=== PATIENT | female | born 1980 | race Two or more races ===

== ENCOUNTER 2020-06-04 18:43 | Outpatient (REF) | payer OTHER, SELFPAY ==
--- NOTE | 2020-06-04 18:45 | MR_ITS ---
EXAMINATION: MR BRAIN WITHOUT CONTRAST CLINICAL INFORMATION: Migraine. COMPARISON: None available. TECHNIQUE: MRI of the brain was obtained using routine sequences without contrast. FINDINGS: No focal restricted diffusion is demonstrated to suggest acute or subacute cerebral ischemia. No evidence of acute or chronic hemorrhagic products on heme-sensitive imaging. Normal parenchymal signal characteristics. The ventricles are normal in morphology and size. No abnormal mass effect. No midline shift. Normal appearance of the pituitary gland. No abnormalities of the posterior fossa with normal appearance of the brainstem and cerebellum. Normal positioning of the cerebellar tonsils. Normal arterial and venous vascular flow voids are present. Normal, homogeneous marrow signal. Mild mucosal thickening of the paranasal sinuses. No signal abnormalities within the mastoids. MR/MR head/brain wo con IMPRESSION: No acute intracranial abnormalities. No MRI abnormalities to explain the patient's symptoms.
== END 2020-06-04 18:44 | disposition home or self-care (01) ==
LOC: HO.MRI 18:43
PROVIDERS: PCP Internal Medicine; Visit Provider Internal Medicine
DX: G43.909 Migraine, unspecified, not intractable, without status migrainosus (principal)
CPT/HCPCS: 70551

== ENCOUNTER 2020-06-10 13:53 | Outpatient (REF) | payer OTHER, SELFPAY ==
[2020-06-10 14:52] LABS: Blood Urea Nitrogen 12 mg/dL (9-16); Estimated Glomerular Filt Rate > 60
[2020-06-10 15:13] LABS: TSH reflex Free T4 1.38 mIU/mL (0.32-4.0)
== END 2020-06-10 13:54 | disposition home or self-care (01) ==
LOC: HO.LAB 13:53
PROVIDERS: Visit Provider Internal Medicine
DX: G43.909 Migraine, unspecified, not intractable, without status migrainosus (principal); E03.9 Hypothyroidism, unspecified
CPT/HCPCS: 36415; 82565; 84443; 84520

== ENCOUNTER 2020-08-23 10:05 | Outpatient (REF) | payer OTHER, SELFPAY ==
[2020-08-23 13:43] LABS: Syphilis Screen Nonreactive (Nonreactive)
[2020-08-23 15:12] LABS: CT PCR NOT DETECTED (Not Detect.); NG PCR NOT DETECTED (Not Detect.)
[2020-08-24 11:51] LABS: BV Int Neg Control Negative (Negative); BV Int Pos Control Positive (Positive)
[2020-08-26 03:46] LABS: HBc Num1 0.08 S/CO (0.00-0.79); Hepatitis B Core Antibody Nonreactive (Nonreactive); ~HepC Num1 0.12 S/CO (0.00-0.79); ~Hepatitis C Antibody Nonreactive (Nonreactive)
[2020-08-26 04:00] LABS: HIV AB/AG Nonreactive (Nonreactive); HIV Num 1 0.07 S/CO (0.00-0.99)
== END 2020-08-23 10:06 | disposition home or self-care (01) ==
LOC: HO.LAB 10:05
PROVIDERS: PCP Internal Medicine; Visit Provider Advanced Practice Midwife
DX: Z01.419 Encounter for gynecological examination (general) (routine) without abnormal findings (principal); N93.9 Abnormal uterine and vaginal bleeding, unspecified; R10.2 Pelvic and perineal pain; Z20.2 Contact with and (suspected) exposure to infections with a predominantly sexual mode of transmission
CPT/HCPCS: 36415; 86704; 86780; 86803; 87389; 87480; 87491; 87510; 87591; 87660

== ENCOUNTER 2020-08-29 15:19 | Outpatient (REF) | payer OTHER, SELFPAY ==
--- NOTE | ~2020-08-29 | US_ITS ---
EXAMINATION: US PELVIC COMPLETE CLINICAL INFORMATION: Pelvic and perineal pain. COMPARISON: None TECHNIQUE: Transabdominal and transvaginal pelvic ultrasound performed. FINDINGS: Uterus: 9.1 x 5.1 x 6.1 cm. Endometrial thickness 0.3 cm. There is a 3.9 x 3.7 x 3.2 cm solid mass in the fundus, likely fibroid. IUD noted in the expected position in the endometrial canal. Right ovary: 2.7 x 1.8 x 2.2 cm with a volume of 5.6 mL. Left ovary: 3.4 x 1.8 x 2 cm for a volume of 6.4 mL. Cul-de-sac fluid: None. US/US transvaginal IMPRESSION: Intrauterine mass consistent with fibroid.
--- NOTE | ~2020-08-29 | MM_ITS ---
EXAMINATION: MM SCREENING DIGITAL BREAST TOMOSYNTHESIS, BILATERAL CLINICAL INFORMATION: Screening. Asymptomatic. No prior breast imaging. Age 40. No known family history breast cancer. The lifetime risk of breast cancer based on the Tyrer-Cuzick Model is 12%. COMPARISON: None (current study represents initial baseline exam). TECHNIQUE: Digital breast tomosynthesis is performed in both the craniocaudal and mediolateral oblique views along with computer-aided detection (CAD). Synthesized 2D images are generated from the tomosynthesis. Additional exaggerated left CC view is provided. FINDINGS: There are scattered areas of fibroglandular density (ACR BI-RADS breast composition Category b). There are no significant masses, abnormal calcifications, or other abnormalities. The axilla and skin contours are unremarkable. MM/MM tomosynthesis screening BI IMPRESSION: No mammographic evidence of malignancy. ASSESSMENT: BI-RADS 1: Negative RECOMMENDATION: Routine annual mammography screening. This patient's information was entered into a reminder system with a target due date for their next mammogram.
--- NOTE | ~2020-08-29 | US_ITS ---
EXAMINATION: US PELVIC COMPLETE CLINICAL INFORMATION: Pelvic and perineal pain. COMPARISON: None TECHNIQUE: Transabdominal and transvaginal pelvic ultrasound performed. FINDINGS: Uterus: 9.1 x 5.1 x 6.1 cm. Endometrial thickness 0.3 cm. There is a 3.9 x 3.7 x 3.2 cm solid mass in the fundus, likely fibroid. IUD noted in the expected position in the endometrial canal. Right ovary: 2.7 x 1.8 x 2.2 cm with a volume of 5.6 mL. Left ovary: 3.4 x 1.8 x 2 cm for a volume of 6.4 mL. Cul-de-sac fluid: None. US/US pelvic complete IMPRESSION: Intrauterine mass consistent with fibroid.
== END 2020-08-29 15:20 | disposition home or self-care (01) ==
LOC: HO.MAMMO 15:19
PROVIDERS: Visit Provider Advanced Practice Midwife
DX: Z12.31 Encounter for screening mammogram for malignant neoplasm of breast (principal); R10.2 Pelvic and perineal pain
CPT/HCPCS: 76830; 76856; 77063; 77067

== ENCOUNTER → 2020-09-16 11:20 | Outpatient (BNVA) | payer OTHER, SELFPAY | PROVIDERS: PCP Internal Medicine; Visit Provider Advanced Practice Midwife ==

== ENCOUNTER 2020-11-20 12:57 | Outpatient (REF) | payer OTHER, SELFPAY ==
[2020-11-20 14:19] LABS: Hematocrit 40.3 % (37-47); Hemoglobin 12.8 g/dl (12.0-16.0); Mean Corpuscular HGB Conc 31.8 g/dl (31.0-35.0); Mean Corpuscular Hemoglobin 27.3 pg (27.0-33.0); Mean Corpuscular Volume 85.9 fL (80-98); Mean Platelet Volume 10.3 fL (9.4-12.3); Platelet Count 305 X10*3/uL (160-400); Red Blood Count 4.69 X10*6/uL (4.20-5.50); Red Cell Distribution Width 13.2 % (11.0-16.0); White Blood Count 9.4 X10*3/uL (4.8-10.8)
[2020-11-23 09:06] LABS: HPV mRNA E6/E7 rflx Not Detected (Not Detected)
== END 2020-11-20 12:58 | disposition home or self-care (01) ==
LOC: HO.LAB 12:57
PROVIDERS: PCP Internal Medicine; Visit Provider Advanced Practice Midwife
DX: Z12.4 Encounter for screening for malignant neoplasm of cervix (principal); Z11.51 Encounter for screening for human papillomavirus (HPV); N93.9 Abnormal uterine and vaginal bleeding, unspecified; N92.1 Excessive and frequent menstruation with irregular cycle
CPT/HCPCS: 36415; 81025; 84443; 85027; 87624; 88142

== ENCOUNTER 2020-12-09 08:38 | Outpatient (REF) | payer OTHER, SELFPAY | END 2020-12-09 08:39 | disposition home or self-care (01) | LOC: HO.LAB 08:38 | PROVIDERS: PCP Internal Medicine; Visit Provider Advanced Practice Midwife | DX: N93.9 Abnormal uterine and vaginal bleeding, unspecified (principal); M54.81 Occipital neuralgia; M54.9 Dorsalgia, unspecified; M54.2 Cervicalgia; G43.909 Migraine, unspecified, not intractable, without status migrainosus; M46.1 Sacroiliitis, not elsewhere classified; M79.18 Myalgia, other site; Z32.02 Encounter for pregnancy test, result negative | CPT/HCPCS: 20553; 58100; 64405; 81025; 88305; J1040 ==

== ENCOUNTER → 2020-12-18 15:06 | Outpatient (REF) | payer OTHER, SELFPAY | LOC: HO.SL 15:06 | PROVIDERS: PCP Internal Medicine; Visit Provider Internal Medicine | DX: R40.0 Somnolence (principal); G47.33 Obstructive sleep apnea (adult) (pediatric) | CPT/HCPCS: 95806 ==

== ENCOUNTER → 2020-12-23 11:57 | Outpatient (BNVA) | payer OTHER, SELFPAY | PROVIDERS: PCP Internal Medicine; Visit Provider Advanced Practice Midwife ==

== ENCOUNTER 2020-12-25 06:28 | Outpatient (REF) | payer OTHER, SELFPAY ==
--- NOTE | ~2020-12-25 | FL_ITS ---
EXAMINATION: XR FLUOROSCOPY WITH IMAGES CLINICAL INFORMATION: Pain. COMPARISON: None. TECHNIQUE: Fluoroscopy performed by Dr. Khan. Fluoroscopy time: 0.8 minutes DAP: 8 Gycm2 Images: 2 FINDINGS: Images demonstrate needle placement and contrast injection over the bilateral lower sacrum. FL/FL guidance in treatment room IMPRESSION: Fluoroscopy guidance for bilateral sacral injection.
--- NOTE | ~2020-12-25 | FL_ITS ---
EXAMINATION: XR FLUOROSCOPY WITH IMAGES CLINICAL INFORMATION: Spondylosis. COMPARISON: RV guidance 12/25/2020 TECHNIQUE: Fluoroscopy performed by Dr. Bill Hewitt. Fluoroscopy time: 0.5 minutes DAP: 1.08 Gycm2 Images: 4 FINDINGS: There are lateral views of the cervical spine with needle the cc tube, C3 and C4 lamina and contrast opacifying the soft tissues. The vertebral heights, alignment and disc heights are preserved. FL/FL guidance in treatment room IMPRESSION: Fluoroscopy was provided to the referring physician for pain management.
== END 2020-12-25 06:29 | disposition home or self-care (01) ==
LOC: HO.RADIR 06:28
PROVIDERS: Visit Provider Internal Medicine
DX: M46.1 Sacroiliitis, not elsewhere classified (principal); G43.909 Migraine, unspecified, not intractable, without status migrainosus
CPT/HCPCS: 27096; J1040; Q9967

== ENCOUNTER 2021-01-24 09:44 | Outpatient (REF) | payer OTHER, SELFPAY ==
--- NOTE | ~2021-01-24 | XR_ITS ---
EXAMINATION: XR CERVICAL SPINE CLINICAL INFORMATION: Occipital neuralgia. COMPARISON: None TECHNIQUE: 4 views of the cervical spine were obtained. FINDINGS: There is straightening of the cervical spine. No prevertebral soft tissue swelling, fractures or subluxations are seen. There is disc space narrowing at C5-C6 with some minimal osteophyte formation. Some calcification is seen in the anterior longitudinal ligament at C6-C7. There is mild disc space narrowing at C7-T1 XR/XR cervical spine 2V IMPRESSION: Mild degenerative changes present as described above most marked at C5-C6.
== END 2021-01-24 09:45 | disposition home or self-care (01) ==
LOC: HO.XRAY 09:44
PROVIDERS: PCP Internal Medicine; Visit Provider Internal Medicine
DX: M54.2 Cervicalgia (principal); R40.0 Somnolence; M54.81 Occipital neuralgia; M46.1 Sacroiliitis, not elsewhere classified
CPT/HCPCS: 72040

== ENCOUNTER → 2021-02-03 15:42 | Outpatient (BNVA) | payer OTHER, SELFPAY | PROVIDERS: Visit Provider Internal Medicine ==

== ENCOUNTER 2021-02-12 06:51 | Outpatient (REF) | payer OTHER, SELFPAY | END 2021-02-12 06:52 | disposition home or self-care (01) | LOC: HO.RADIR 06:51 | PROVIDERS: Visit Provider Internal Medicine | DX: M47.812 Spondylosis without myelopathy or radiculopathy, cervical region (principal); M54.81 Occipital neuralgia | CPT/HCPCS: 64490; 64491 ==

== ENCOUNTER → 2021-02-21 10:23 | Outpatient (BNVA) | payer OTHER, SELFPAY | PROVIDERS: PCP Internal Medicine; Visit Provider Internal Medicine ==

== ENCOUNTER 2021-03-12 06:07 | Outpatient (REF) | payer OTHER, SELFPAY ==
--- NOTE | ~2021-03-12 | FL_ITS ---
EXAMINATION: XR FLUOROSCOPY WITH IMAGES CLINICAL INFORMATION: M54.81 - Occipital neuralgia COMPARISON: Radiographs cervical spine 01/24/2021 TECHNIQUE: Fluoroscopy performed by Dr. Khan. Fluoroscopy time: 0.5 minutes DAP: 0.671 Gycm2 Images: 7 FINDINGS: There are spinal needles at the right lateral masses C2, C3, C4, and C5. Contrast is seen in the nerve sheaths. There is no vascular communication. FL/FL guidance in treatment room IMPRESSION: Fluoroscopy for pain management procedures.
== END 2021-03-12 06:08 | disposition home or self-care (01) ==
LOC: HO.RADIR 06:07
PROVIDERS: Visit Provider Internal Medicine
DX: M54.81 Occipital neuralgia (principal); M46.1 Sacroiliitis, not elsewhere classified; Z79.899 Other long term (current) drug therapy
CPT/HCPCS: 64490; 64491; 64492; J1040; J1100; Q9967

== ENCOUNTER → 2021-03-14 08:00 | Outpatient (BNVA) | payer OTHER, SELFPAY | PROVIDERS: PCP Internal Medicine; Visit Provider Internal Medicine ==

== ENCOUNTER 2021-04-16 06:03 | Outpatient (REF) | payer OTHER, SELFPAY ==
--- NOTE | ~2021-04-16 | FL_ITS ---
EXAMINATION: XR FLUOROSCOPY WITH IMAGES CLINICAL INFORMATION: M54.81 - Occipital neuralgia COMPARISON: None. TECHNIQUE: Fluoroscopy performed by Dr. Francisco Khan. Fluoroscopy time: 0.8 minutes DAP: 2.37 Gycm2 Images: 4 FINDINGS: There are spinal needles overlying the right lateral masses at C3, C4, and C5. FL/FL guidance in treatment room IMPRESSION: Fluoroscopy for pain management procedure.
== END 2021-04-16 06:04 | disposition home or self-care (01) ==
LOC: HO.RADIR 06:03
PROVIDERS: Visit Provider Internal Medicine
DX: M54.81 Occipital neuralgia (principal)
CPT/HCPCS: 64490; 64491; 64633; 64634

== ENCOUNTER → 2021-05-12 09:49 | Outpatient (BNVA) | payer OTHER, SELFPAY | PROVIDERS: PCP Internal Medicine; Visit Provider Internal Medicine ==

== ENCOUNTER 2021-05-28 05:57 | Outpatient (REF) | payer OTHER, SELFPAY ==
--- NOTE | ~2021-05-28 | FL_ITS ---
EXAMINATION: XR FLUOROSCOPY WITH IMAGES CLINICAL INFORMATION: M46.1 - Sacroiliitis, not elsewhere classified COMPARISON: None. TECHNIQUE: Fluoroscopy performed by Dr. Francisco Khan. Fluoroscopy time: 0.6 minutes DAP: 1.75 Gycm2 Images: 4 FINDINGS: Spinal needles overlies mid left and mid right SI joints. No acute bony abnormality. FL/FL guidance in treatment room IMPRESSION: Fluoroscopy for pain management procedure.
== END 2021-05-28 05:58 | disposition home or self-care (01) ==
LOC: HO.RADIR 05:57
PROVIDERS: Visit Provider Internal Medicine
DX: M46.1 Sacroiliitis, not elsewhere classified (principal)
CPT/HCPCS: J1040

== ENCOUNTER → 2021-06-27 08:47 | Outpatient (BNVA) | payer OTHER, SELFPAY | PROVIDERS: PCP Internal Medicine; Visit Provider Internal Medicine ==

== ENCOUNTER 2021-07-15 08:18 | Outpatient (REF) | payer OTHER, SELFPAY ==
[2021-07-15 10:10] LABS: Alanine Aminotransferase 18 U/L (0-31); Albumin Level 4.2 g/dL (3.5-5.0); Alkaline Phosphatase 86 U/L (39-117); Anion Gap 14 (12-20); Aspartate Amino Transferase 16 U/L (5-31); Bilirubin Total 0.3 mg/dL (0.0-1.0); Blood Urea Nitrogen 17 mg/dL (9-16); Calcium 9.4 mg/dL (8.4-10.2); Carbon Dioxide 23 mmol/L (22-29); Chloride 108 mmol/L (96-108); Cholesterol 226 mg/dL; Estimated Glomerular Filt Rate > 60; Glucose Fasting 97 mg/dL (60-99); HDL Cholesterol 40 mg/dL; LDL Cholesterol Calculated 167 mg/dl; Potassium 4.6 mmol/L (3.3-5.1); Sodium 140 mmol/L (135-145); Total Protein 7.6 g/dL (6.5-8.0); Triglycerides 97 mg/dL
[2021-07-15 10:32] LABS: Thyroid Stimulating Hormone 2.77 uIU/mL (0.32-4.0)
== END 2021-07-15 08:19 | disposition home or self-care (01) ==
LOC: HO.LAB 08:18
PROVIDERS: PCP Internal Medicine; Visit Provider Internal Medicine
DX: Z00.00 Encounter for general adult medical examination without abnormal findings (principal); E03.9 Hypothyroidism, unspecified
CPT/HCPCS: 36415; 80053; 80061; 84443

== ENCOUNTER 2021-08-27 06:11 | Outpatient (REF) | payer OTHER, SELFPAY ==
--- NOTE | ~2021-08-27 | FL_ITS ---
EXAMINATION: XR FLUOROSCOPY WITH IMAGES CLINICAL INFORMATION: M46.1 - Sacroiliitis, not elsewhere classified COMPARISON: Fluoroscopic spot views 05/28/2021 TECHNIQUE: Fluoroscopy performed by Dr. Francisco Khan. Fluoroscopy time: 0.3 minutes DAP: 1.13 Gycm2 Images: 4 FINDINGS: Spinal needles overlie the bilateral mid SI joints. FL/FL guidance in treatment room IMPRESSION: Fluoroscopy for pain management procedure.
== END 2021-08-27 06:12 | disposition home or self-care (01) ==
LOC: HO.RADIR 06:11
PROVIDERS: Visit Provider Internal Medicine
DX: M46.1 Sacroiliitis, not elsewhere classified (principal); Z01.419 Encounter for gynecological examination (general) (routine) without abnormal findings
CPT/HCPCS: 27096; J1040; Q9967

== ENCOUNTER 2021-08-27 15:53 | Outpatient (REF) | payer OTHER, SELFPAY ==
[2021-08-28 02:12] LABS: CT PCR NOT DETECTED (Not Detect.); NG PCR NOT DETECTED (Not Detect.)
== END 2021-08-27 15:54 | disposition home or self-care (01) ==
LOC: HO.LAB 15:53
PROVIDERS: Visit Provider Advanced Practice Midwife
DX: Z11.3 Encounter for screening for infections with a predominantly sexual mode of transmission (principal); Z20.2 Contact with and (suspected) exposure to infections with a predominantly sexual mode of transmission
CPT/HCPCS: 87491; 87591

== ENCOUNTER 2021-09-02 16:10 | Outpatient (REF) | payer OTHER, SELFPAY ==
--- NOTE | ~2021-09-02 | MM_ITS ---
EXAMINATION: MM SCREENING DIGITAL BREAST TOMOSYNTHESIS, BILATERAL CLINICAL INFORMATION: Screening. Asymptomatic. The lifetime risk of breast cancer based on the Tyrer-Cuzick Model is 14%. COMPARISON: Mammography: 08/29/2020 (baseline). TECHNIQUE: Digital breast tomosynthesis is performed in both the craniocaudal and mediolateral oblique views along with computer-aided detection (CAD). Synthesized 2D images are generated from the tomosynthesis. FINDINGS: There are scattered areas of fibroglandular density (ACR BI-RADS breast composition Category b). Parenchymal pattern is similar to baseline exam 2020. There is no interval mass or architectural abnormality or abnormal calcifications. The axilla and skin contours are unremarkable. No significant changes. MM/MM tomosynthesis screening BI IMPRESSION: No mammographic evidence of malignancy. ASSESSMENT: BI-RADS 1: Negative RECOMMENDATION: Routine annual mammography screening. This patient's information was entered into a reminder system with a target due date for their next mammogram.
== END 2021-09-02 16:11 | disposition home or self-care (01) ==
LOC: HO.MAMMO 16:10
PROVIDERS: Visit Provider Internal Medicine
DX: Z12.31 Encounter for screening mammogram for malignant neoplasm of breast (principal)
CPT/HCPCS: 77063; 77067

== ENCOUNTER → 2021-09-26 08:03 | Outpatient (BNVA) | payer OTHER, SELFPAY | PROVIDERS: PCP Internal Medicine; Visit Provider Internal Medicine | DX: M46.1 Sacroiliitis, not elsewhere classified (principal) ==

== ENCOUNTER → 2021-11-17 09:51 | Outpatient (BNVA) | payer OTHER, SELFPAY | PROVIDERS: PCP Internal Medicine; Visit Provider Advanced Practice Midwife | DX: Z30.433 Encounter for removal and reinsertion of intrauterine contraceptive device (principal); Z32.02 Encounter for pregnancy test, result negative | CPT/HCPCS: 58300; 58301; 81025 ==

== ENCOUNTER 2022-01-31 15:55 | Emergency (ER) | payer OTHER, SELFPAY ==
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
[2022-01-31 16:43] VITALS: BP 137/79; PULSE 69; RESP 18; TEMP 36.9; O2SAT 99; BMI 34.0
[2022-01-31 23:01] VITALS: BP 144/85; PULSE 54; RESP 12; O2SAT 99
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
== END 2022-01-31 23:28 | disposition home or self-care (01) ==
PROVIDERS: Emergency Provider Emergency Medicine; PCP Internal Medicine
DX: Z04.1 Encounter for examination and observation following transport accident (principal); M25.552 Pain in left hip; M54.50 Low back pain, unspecified
CPT/HCPCS: 72100; 73502; 99283; 99284

== ENCOUNTER 2022-04-06 16:44 | Outpatient (REF) | payer OTHER, SELFPAY ==
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
[2022-04-06 18:26] LABS: Thyroid Stimulating Hormone 2.38 uIU/mL (0.32-4.0)
== END 2022-04-06 16:45 | disposition home or self-care (01) ==
LOC: HO.LAB 16:44
PROVIDERS: Visit Provider Internal Medicine
DX: E03.9 Hypothyroidism, unspecified (principal); M25.561 Pain in right knee; M25.552 Pain in left hip; M54.32 Sciatica, left side
CPT/HCPCS: 36415; 73562; 84443

== ENCOUNTER → 2022-05-28 11:41 | Outpatient (BNVA) | payer OTHER, SELFPAY | PROVIDERS: PCP Internal Medicine; Visit Provider Advanced Practice Midwife | DX: Z13.89 Encounter for screening for other disorder (principal) ==

== ENCOUNTER 2022-09-17 09:56 | Outpatient (REF) | payer OTHER, SELFPAY ==
--- NOTE | ~2022-09-17 | MM_ITS ---
EXAMINATION: MM SCREENING DIGITAL BREAST TOMOSYNTHESIS, BILATERAL CLINICAL INFORMATION: Screening. Asymptomatic. The lifetime risk of breast cancer based on the Tyrer-Cuzick Model is 10.6%. COMPARISON: Mammography: September 02, 2021 and August 29, 2020 TECHNIQUE: Digital breast tomosynthesis is performed in both the craniocaudal and mediolateral oblique views along with computer-aided detection (CAD). Synthesized 2D images are generated from the tomosynthesis. FINDINGS: The breasts are heterogeneously dense, which may obscure small masses (ACR BI-RADS breast composition Category c). There are no significant masses, abnormal calcifications, or other abnormalities. MM/MM tomosynthesis screening BI IMPRESSION: No significant changes ASSESSMENT: BI-RADS 1: Negative RECOMMENDATION: Routine annual mammography screening. This patient's information was entered into a reminder system with a target due date for their next mammogram.
== END 2022-09-17 09:57 | disposition home or self-care (01) ==
LOC: HO.MAMMO 09:56
PROVIDERS: PCP Internal Medicine; Visit Provider Internal Medicine
DX: Z12.31 Encounter for screening mammogram for malignant neoplasm of breast (principal)
CPT/HCPCS: 77063; 77067

== ENCOUNTER 2023-03-30 08:11 | Outpatient (AMB) | payer OTHER, SELFPAY ==
--- NOTE | 2023-03-30 08:27 | A.OFFPC_ITS ---
Vital Signs 03/30/23 08:28 03/30/23 09:21 Height 5 ft 1 in Weight 196 lb BMI 37.0 BP 160/108 H 160/90 H Blood Pressure Location Lt brachial Lt brachial Position Sitting Sitting Pulse 62 Pulse Source Pulse Oximeter Pulse Oximetry (%) 99 Oxygen Delivery Method Room Air Intake Visit Reasons: Swelling, numbness, discoloration on both hands Intake Note: Patient here c/o swelling, numbness, discoloration on hands Sports Psychologist Required: No Accompanied by: Self / Same As Patient Allergies No Known Allergies [No Known Allergies*] Allergy (Verified 03/30/23 08:46) Medication List - Last Reconciled 03/30/23 by Bethany Day MD blood pressure monitor As directed CPAP (CPAP Machine/Device) autoPAP mode 6-16 cmH2O ibuprofen 800 mg PO Q8H PRN 30 days levonorgestrel (Mirena) intrauterine levothyroxine 75 mcg PO QAM metoclopramide HCl mg PO sertraline 50 mg PO QAM sumatriptan succinate 50 mg PO Q2-4H verapamil ER 120 mg PO DAILY Tobacco use date assessed: 10/14/22 Dental Screening Dental Screen Date: 03/30/23 Did you have a dental visit in the last 12 months?: Yes Did you have a dental problem in the last 6 months where you did not have access to dental care?: No Was dental information given to patient?: Patient has dentist HPI HPI Comments History of Present Illness Details This is a 43-year-old female with hypothyroidism, anxiety, hypertension and obstructive sleep apnea on CPAP that complains of bilateral hand numbness and left hand pain that started few weeks ago with no previous trauma. Has positive Tinel and Phalen sign. TSH will be repeated today. Anxiety stable with SSRIs. Compliant with CPAP machine and feels markedly improved and rested. Blood pressure elevated but has not take her verapamil yet. Blood pressure will be recheck in 3 weeks by nurse navigator. [facility] Medical History (Updated 03/30/23 @ 08:52 by Bethany Day MD) Physical exam Cervical spondylosis without myelopathy CHELSEY (obstructive sleep apnea) Myofascial pain syndrome, cervical Bilateral occipital neuralgia Bilateral sacroiliitis Daytime sleepiness Neck pain Lumbar pain Fibromyalgia Anxiety Migraines Hypothyroidism Surgical History No pertinent past surgical history Family History Father Essential hypertension Kidney failure Mother Essential hypertension Family/Other FH: mental illness Paternal Aunt Ovarian cancer Stomach cancer Throat cancer Breast cancer Social History Housing: House Alcohol intake: current Alcohol intake frequency: holidays/special occasions only Patient Tobacco Use Status: Never used Tobacco e-Cigarette/Vaping Use: Never Used Second Hand Smoke Exposure: No service: No Current occupational status: employed Current occupational exposures/hazards: No Gender identity: Female Cognitive needs: No Hearing needs: No Vision needs: No Female Reproductive History Menstrual Age of Menarche: 10 Questionnaire Thrive Questionnaire Date Thrive assessed: 10/14/22 ZOË-7 AMB Questionnaire ZOË-7 Date ZOË - 7 assessed: 10/14/22 Source: Developed by Drs. Joaquín Zuleta, Lilliam Panye, Gabriel Mancuso and colleagues, with an educational monet from [employer]. Review of Systems Const All systems reviewed & are unremarkable except as noted in HPI and below Eyes Reports no additional complaints, Denies change in vision and Denies other visual disturbances Card Denies chest pain at rest, Denies chest pain with activity, Denies edema, Denies irregular heart rhythm, Denies claudication, Denies dyspnea, Denies dyspnea on exertion, Denies orthopnea, Denies paroxysmal nocturnal dyspnea and Denies slow heart rate Resp Denies cough, Denies dyspnea and Denies dyspnea on exertion GI Denies abdominal pain, Denies change in bowel habits, Denies excessive flatus, Denies nausea and Denies vomiting Denies urinary incontinence, Denies urinary hesitancy and Denies urinary urgency Musc Denies abnormal gait, Denies atrophy, Denies deformity, Reports arthralgias, Denies limited range of motion and Reports numbness Skin/Breast Denies bleeding lesions, Denies changing lesions and Denies rash Neuro Denies abnormal gait, Denies lack of coordination and Reports numbness Physical exam (Primary Care) Vital Signs: Last Vital Signs Pulse 62 03/30/23 08:28 BP 160/108 H 03/30/23 08:28 Pulse Ox 99 03/30/23 08:28 Oxygen Delivery Method Room Air 03/30/23 08:28 BMI result Body Mass Index 37.0 Tobacco/Smoking Status: Tobacco use Status Tobacco use date assessed 10/14/22 03/30/23 08:31 Patient Tobacco Use Status Never used Tobacco 03/30/23 08:31 e-Cigarette/Vaping Use Never Used 03/30/23 08:31 Thrive Assessment: Date of Thrive Assessment Date Thrive assessed 10/14/22 03/30/23 08:31 Eyes General: appearance normal, both eyes and all related structures Eyelids: Yes eyelids normal Conjunctivae: conjunctivae normal Neck Neck: Yes normal visual inspection and Yes supple Resp Effort & Inspection: normal respiratory effort Auscultation: clear to auscultation bilaterally Cardio Jugular venous distension: no JVD Rate: regular rate Rhythm: regular rhythm Heart sounds: S1 normal heart sound present and S2 normal heart sound present Extrem Other: Positive Phalen and Tinel sign bilateral General: Yes full ROM Office Procedures Flu Questionnaire Does the patient have a severe egg allergy?: No Immunizations flu vacc [id number] 6mos up(PF) 60 mcg(15 mcgx4)/0.5 mL IM syringe Performing Provider: Bethany Day MD [facility] Documented (not given) by: MAXIMILIANO Hernandez on 03/30/23 08:32 Reason Not Given: Patient Refused Assessment and Plan Assessment & Plan (1) Paresthesia of both hands: Code(s): R20.2 - Paresthesia of skin Plan: Nerve conduction study ordered (2) Essential hypertension: Code(s): I10 - Essential (primary) hypertension Plan: Continue verapamil. Blood pressure goal is equal or less than 130/80. (3) CHELSEY on CPAP: Code(s): G47.33 - Obstructive sleep apnea (adult) (pediatric); Z99.89 - Dependence on other enabling machines and devices Plan: Continue CPAP machine. (4) Hypothyroidism: Code(s): E03.9 - Hypothyroidism, unspecified Qualifiers: Hypothyroidism type: unspecified Qualified Code(s): E03.9 - Hypothyroidism, unspecified Plan: Continue levothyroxine. Repeat TSH today. (5) Anxiety: Code(s): F41.9 - Anxiety disorder, unspecified Plan: Continue SSRIs Orders: Orders Influenza [id number] Immunization Today Z23 - Encounter for immunization NE nerve conduction velocity Today R20.2 - Paresthesia of skin Thyroid Stimulating Hormone Today E03.9 - Hypothyroidism, unspecified XR hand LT 2V Today M79.642 - Pain in left hand Coding Level of Care Code Est Pt Level 4 (52656) Diagnoses Paresthesia of both hands R20.2 Essential hypertension I10 CHELSEY on CPAP G47.33; Z99.89 Hypothyroidism, unspecified type E03.9 Hypothyroidism type: unspecified Anxiety F41.9 Time Spent (min) 23
[2023-03-30 08:28] VITALS: BP 160/108; PULSE 62; O2SAT 99; BMI 37.0
[2023-03-30 09:21] VITALS: BP 160/90
== END 2023-03-30 08:52 | disposition home or self-care (01) ==
PROVIDERS: PCP Internal Medicine; Visit Provider Internal Medicine
DX: R20.2 Paresthesia of skin (principal); I10 Essential (primary) hypertension; G47.33 Obstructive sleep apnea (adult) (pediatric); Z99.89 Dependence on other enabling machines and devices; E03.9 Hypothyroidism, unspecified; F41.9 Anxiety disorder, unspecified
CPT/HCPCS: 99214

== ENCOUNTER 2023-03-30 09:05 | Outpatient (REF) | payer OTHER, SELFPAY ==
--- NOTE | ~2023-03-30 | XR_ITS ---
EXAMINATION: XR HAND, LEFT CLINICAL INFORMATION: Pain in left hand COMPARISON: None available. TECHNIQUE: PA, lateral, and oblique views of the left hand. FINDINGS: There is no evidence of fractures, subluxations, changes of osteoarthritis. Soft tissues unremarkable. XR/XR hand LT 2V IMPRESSION: Normal left hand.
[2023-03-30 10:38] LABS: Alanine Aminotransferase 15 U/L (0-31); Albumin Level 3.9 g/dL (3.5-5.0); Alkaline Phosphatase 78 U/L (39-117); Anion Gap 10 (12-20); Aspartate Amino Transferase 23 U/L (5-31); Bilirubin Total 0.2 mg/dL (0.0-1.0); Blood Urea Nitrogen 13 mg/dL (9-16); Calcium 9.2 mg/dL (8.4-10.2); Carbon Dioxide 26 mmol/L (22-29); Chloride 109 mmol/L (96-108); Cholesterol 170 mg/dL (<200); Estimated Glomerular Filt Rate > 60; Glucose Fasting 97 mg/dL (60-99); HDL Cholesterol 33 mg/dL (>40); LDL Cholesterol Calculated 113 mg/dL (<100); Potassium 3.9 mmol/L (3.3-5.1); Sodium 141 mmol/L (135-145); Total Protein 7.3 g/dL (6.5-8.0); Triglycerides 122 mg/dL (<150)
[2023-03-30 10:52] LABS: Thyroid Stimulating Hormone 2.25 uIU/mL (0.32-4.0)
== END 2023-03-30 09:06 | disposition home or self-care (01) ==
LOC: HO.LAB 09:05
PROVIDERS: PCP Internal Medicine; Visit Provider Internal Medicine
DX: M79.642 Pain in left hand (principal); E03.9 Hypothyroidism, unspecified; E78.5 Hyperlipidemia, unspecified; I10 Essential (primary) hypertension
CPT/HCPCS: 36415; 73120; 80053; 80061; 84443

== ENCOUNTER 2023-04-07 09:01 | Outpatient (REF) | payer OTHER, SELFPAY ==
--- NOTE | 2023-04-07 09:11 | EMG_ITS ---
Please see scanned EMG / Nerve Conduction Report. MTDD
== END 2023-04-07 09:02 | disposition home or self-care (01) ==
LOC: HO.NEURO 09:01
PROVIDERS: PCP Internal Medicine; Visit Provider Internal Medicine
DX: R20.2 Paresthesia of skin (principal)
CPT/HCPCS: 95885; 95913

== ENCOUNTER 2023-06-21 09:56 | Outpatient (AMB) | payer OTHER, SELFPAY ==
--- NOTE | 2023-06-21 10:00 | A.OFFVIS_ITS ---
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 States her right hand is worse than her left hand. Patient reports that the MF, RF, and the PF get numb/tingling. States CTS increases especially at night night time. Patient has tried Tylenol with no relief. EMG done. She states that both hands turned blue, its been going on for a month. 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 The patient reports her right hand is worse then her left hand. She claims her middle, ring, and little finger have numbness and tingling. She reports this sensation increases at night. She reports she has tried Tylenol with no relief. She states her bilateral hands having been turning blue for the last month, since 04/2023. [facility] Medical History Physical exam Cervical spondylosis without myelopathy CHELSEY (obstructive sleep apnea) Myofascial pain syndrome, cervical Bilateral occipital neuralgia Bilateral sacroiliitis Daytime sleepiness Neck pain Lumbar pain Fibromyalgia Anxiety Migraines Hypothyroidism Surgical History No pertinent past surgical history Family History Father Essential hypertension Kidney failure Mother Essential hypertension Family/Other FH: mental illness Paternal Aunt Ovarian cancer Stomach cancer Throat cancer Breast cancer Social History Housing: House Alcohol intake: current Alcohol intake frequency: holidays/special occasions on ly Patient Tobacco Use Status: Never used Tobacco e-Cigarette/Vaping Use: Never Used Second Hand Smoke Exposure: No service: No Current occupational status: employed Current occupational exposures/hazards: No Gender identity: Female Cognitive needs: No Hearing needs: No Vision needs: No Female Reproductive History Menstrual Age of Menarche: 10 Review of Systems Const All systems reviewed & are unremarkable except as noted in HPI and below Physical Exam Const General: cooperative and no acute distress Orientation/consciousness: patient oriented x3 Resp Effort & Inspection: normal respiratory effort and able to speak in complete sentences Cardio Peripheral pulses: Peripheral pulses 2+ throughout Skin General skin exam: no rashes or lesions noted Neuro General: patient oriented x3 Extrem Other: Bilateral hands: Normal to inspection. No ecchymosis, erythema, or edema. Able to perform full finger flexion, extension, abduction, adduction, finger cross, okay sign, and thumbs up without deficit. Able to make a closed fist. Sensation intact. Capillary refill is brisk. Radial pulse intact. Negative Tolu test bilaterally. Assessment & Plan Assessment & Plan (1) Right carpal tunnel syndrome: Code(s): G56.01 - Carpal tunnel syndrome, right upper limb (2) Left carpal tunnel syndrome: Code(s): G56.02 - Carpal tunnel syndrome, left upper limb Plan Ms. Gutierrez is a 43-year-old left hand dominant female who presents in the office today, as a new patient, for an evaluation of right hand pain. The patient reports her right hand is worse then her left hand. She claims her middle, ring, and little finger have numbness and tingling. She reports this sensation increases at night. She reports she has tried Tylenol with no relief. She states her bilateral hands having been turning blue for the last month, since 04/2023. The patient reports multiple episodes of her bilateral hands turning blue. This is not associated with numbness, pain, or change in temperature. She states her hands are still warm when this occurs. She reports this occurs sporadically with the last episode occurring at 2:00 pm while she was at work. I did perform the Tolu test which showed good collateral blood flow to the bilateral hands. I did discuss with the patient that she would benefit from carpal tunnel surgery to help decrease her pain, numbness, and tingling in the bilateral hands, mainly her right. However, she would like to hold off at this time. I did discuss watchful waiting in regards to the color change in the bilateral hands or for her to be referred to Vascular. She would like a referral to Vascular at this time to further investigate. This has been placed. Follow up with Orthopedics will be PRN, or sooner if needed. EMG of the bilateral hand, obtained on 04/07/2023, revealed: Mild to moderate compression palsy of the left median nerve at the wrist consistent with mild to moderate carpal tunnel syndrome. Early carpal tunnel syndrome on the right. Normal ENG of the left C5-T1 innervated muscles. Orders: Referrals Vascular Surgery Referral M79.641 - Pain in right hand, M79.642 - Pain in left hand Patient Instructions: Scribed for Magaly Montez PA-C by Sandie Gilliam medical biller coder, on 06/21/2023 at 9:59 am, EST. Coding Level of Care Code New Pt Level 4 (94033) Diagnoses Right carpal tunnel syndrome G56.01 Left carpal tunnel syndrome G56.02
== END 2023-06-21 10:25 | disposition home or self-care (01) ==
PROVIDERS: PCP Internal Medicine; Visit Provider Physician Assistant
DX: G56.03 Carpal tunnel syndrome, bilateral upper limbs (principal)
CPT/HCPCS: 99203

== ENCOUNTER → 2023-06-21 09:56 | Outpatient (BNVA) | payer OTHER, SELFPAY | PROVIDERS: PCP Internal Medicine; Visit Provider Physician Assistant ==

== ENCOUNTER 2023-09-22 09:34 | Outpatient (AMB) | payer OTHER, SELFPAY ==
[2023-09-22 09:44] VITALS: BP 114/67; PULSE 80; O2SAT 98; BMI 37.0
--- NOTE | 2023-09-22 09:44 | A.OFFVIS_ITS ---
Vital Signs 09/22/23 09:44 Height 5 ft 1 in Weight 196 lb BMI 37.0 BP 114/67 Blood Pressure Location Lt brachial Position Sitting Pulse 80 Pulse Source Doppler Pulse Oximetry (%) 98 Oxygen Delivery Method Room Air Intake Visit Reasons: Obstructive sleep apnea Allergies No Known Allergies [No Known Allergies*] Allergy (Verified 06/21/23 10:03) HPI HPI Obstructive sleep apnea: Details: 43-year-old lady with underlying history of moderate obstructive sleep apnea treated with CPAP referred for management of therapy. Patient states that she has been using her machine with good control of his symptoms. She has been getting her supplies from [facility]. She denies any problems at this time r egarding her CPAP therapy underlying obstructive sleep apnea. Patient does complain of intermittent episodes of bilateral hand acrocyanosis that are mildly painful. She does have family history of lupus in one of her cousins. She denies personal history of rheumatologic diseases. She also complains of intermittent rash of anterior chest and of bilateral nasolabial folds. [facility] Medical History Physical exam Cervical spondylosis without myelopathy CHELSEY (obstructive sleep apnea) Myofascial pain syndrome, cervical Bilateral occipital neuralgia Bilateral sacroiliitis Daytime sleepiness Neck pain Lumbar pain Fibromyalgia Anxiety Migraines Hypothyroidism Surgical History No pertinent past surgical history Family History Father Essential hypertension Kidney failure Mother Essential hypertension Family/Other FH: mental illness Paternal Aunt Ovarian cancer Stomach cancer Throat cancer Breast cancer Social History Housing: House Alcohol intake: current Alcohol intake frequency: holidays/special occasions only Patient Tobacco Use Status: Never used Tobacco e-Cigarette/Vaping Use: Never Used Second Hand Smoke Exposure: No service: No Current occupational status: employed Current occupational exposures/hazards: No Gender identity: Female Cognitive needs: No Hearing needs: No Vision needs: No Female Reproductive History Menstrual Age of Menarche: 10 Review of Systems Const Denies daytime sleepiness, Denies excessive sweating, Denies fatigue, Denies fever(s), Denies lethargy, Denies malaise, Denies night sweats, Denies snoring and Denies weight loss Eyes Denies blurry vision and Denies itchy eyes ENT Denies nasal congestion, Denies post nasal drip, Denies sinus pain, Denies sinus pressure and Denies other ( Thrush) Card Denies chest pain, Denies pedal edema, Denies dyspnea, Denies orthopnea and Denies paroxysmal nocturnal dyspnea Resp Denies cough, Denies hemoptysis, Denies excessive phlegm production, Denies dyspnea, Denies snoring and Denies wheezing GI Denies abdominal pain and Denies heartburn Musc Denies myalgias, Denies arthralgias and Denies joint swelling Skin/Breast Denies rash Neuro Denies memory loss and Denies seizure-like activity Psych Denies abnormal sleep pattern, Denies anxiety and Denies memory loss Endo Denies excessive sweating, Denies fatigue and Denies heat intolerance Temo/Lymph Denies easy bruising Aller/Immun Denies itchy eyes, Denies seasonal rhinorrhea and Denies wheezing Physical Exam Vital Signs: Last Vital Signs Pulse 80 09/22/23 09:44 BP 114/67 09/22/23 09:44 Pulse Ox 98 09/22/23 09:44 Oxygen Delivery Method Room Air 09/22/23 09:44 BMI result Body Mass Index 37.0 Const General: no acute distress and alert Nutritional Appearance: not obese Orientation/consciousness: Other orientation findings ( oriented) HEENT Head: Yes atraumatic Eyes General: appearance normal, both eyes and all related structures Sclerae: sclerae normal EOM: EOMs intact bilaterally Neck Neck: Yes supple Lymphatic: no lymphadenopathy noted Resp Effort & Inspection: normal respiratory effort and no use of accessory muscles Auscultation: clear to auscultation bilaterally Cardio Rate: regular rate Rhythm: regular rhythm Heart sounds: no gallops, no murmurs and no rubs Skin General skin exam: other ( warm) Extrem General: No clubbing, No cyanosis and No edema Assessment & Plan Assessment & Plan (1) CHELSEY on CPAP: Code(s): G47.33 - Obstructive sleep apnea (adult) (pediatric); Z99.89 - Dependence on other enabling machines and devices Category: Medical Plan: Well controlled on current CPAP therapy. Continue CPAP therapy. (2) Acrocyanosis: Code(s): I73.89 - Other specified peripheral vascular diseases Category: Medical Plan: Unclear etiology, will proceed with rheumatologic workup and consider referral to Rheumatology, if positive. Patient appears to also have been referred for work up by vascular surgery for possible vascular component. Orders: Orders Anti DNA DS Antibody Today I73.89 - Other specified peripheral vascular diseases Creatine Kinase Total Today I73.89 - Other specified peripheral vascular diseases ARIC 1 Antibody Today I73.89 - Other specified peripheral vascular diseases Cardiolipin Antibodies Today I73.89 - Other specified peripheral vascular diseases Lupus Anticoagulant Panel Today I73.89 - Other specified peripheral vascular diseases Aldolase Today I73.89 - Other specified peripheral vascular diseases Complement C3 Today I73.89 - Other specified peripheral vascular diseases Complement C4 Today I73.89 - Other specified peripheral vascular diseases Coding Level of Care Code New Pt Level 4 (25175) Diagnoses CHELSEY on CPAP G47.33; Z99.89 Acrocyanosis I73.89
== END 2023-09-22 10:05 | disposition home or self-care (01) ==
PROVIDERS: PCP Internal Medicine; Visit Provider Internal Medicine Pulmonary Disease
DX: G47.33 Obstructive sleep apnea (adult) (pediatric) (principal); Z99.89 Dependence on other enabling machines and devices; I73.89 Other specified peripheral vascular diseases
CPT/HCPCS: 99204

== ENCOUNTER → 2023-09-22 09:34 | Outpatient (BNVA) | payer OTHER, SELFPAY | PROVIDERS: PCP Internal Medicine; Visit Provider Internal Medicine Pulmonary Disease ==

== ENCOUNTER 2023-09-23 09:36 | Outpatient (REF) | payer OTHER, SELFPAY ==
--- NOTE | ~2023-09-23 | MM_ITS ---
EXAMINATION: MM SCREENING DIGITAL BREAST TOMOSYNTHESIS, BILATERAL CLINICAL INFORMATION: Screening. Asymptomatic. COMPARISON: Mammography: This study is compared with prior exams dating back to 2020. TECHNIQUE: Digital breast tomosynthesis is performed in both the craniocaudal and mediolateral oblique views along with computer-aided detection (CAD). Synthesized 2D images are generated from the tomosynthesis. FINDINGS: The breasts are heterogeneously dense, which may obscure small masses (ACR BI-RADS breast composition Category c). There are no significant masses, abnormal calcifications, or other abnormalities. MM/MM tomosynthesis screening BI IMPRESSION: No mammographic evidence of malignancy. ASSESSMENT: BI-RADS BI-RADS 1 - Negative RECOMMENDATION: Routine annual mammography screening. 1 year F/U This examination should not preclude the clinical evaluation of a suspicious palpable abnormality. This patient's information was entered into a reminder system with a target due date for their next mammogram.
== END 2023-09-23 09:37 | disposition home or self-care (01) ==
LOC: HO.MAMMO 09:36
PROVIDERS: PCP Internal Medicine; Visit Provider Internal Medicine
DX: Z12.31 Encounter for screening mammogram for malignant neoplasm of breast (principal)
CPT/HCPCS: 77063; 77067

== ENCOUNTER → 2023-09-23 09:45 | Outpatient (BNV) | payer OTHER, SELFPAY | PROVIDERS: PCP Internal Medicine; Visit Provider Radiology Diagnostic Radiology | DX: Z12.31 Encounter for screening mammogram for malignant neoplasm of breast (principal) | CPT/HCPCS: 77063; 77067 ==

== ENCOUNTER 2023-09-23 10:24 | Outpatient (REF) | payer OTHER, SELFPAY ==
[2023-09-24 13:53] LABS: Complement C3 138 mg/dL (83-193)
[2023-09-24 19:49] LABS: Anti DNA DS Antibody <1 IU/mL; JO 1 Antibody <1.0 NEG AI (<1.0 NEG)
[2023-09-24 20:19] LABS: Cardiolipin IgG Ab <2.0 GPL-U/mL; Cardiolipin IgM Ab <2.0 MPL-U/mL
[2023-09-26 23:48] LABS: Hexagonal Phase Neutralization Negative (Negative); PTT (LAC) Screen 41 sec (<=40)
[2023-09-29 15:49] LABS: Aldolase 6.3 U/L (<=8.1)
== END 2023-09-23 10:25 | disposition home or self-care (01) ==
LOC: HO.LAB 10:24
PROVIDERS: PCP Internal Medicine; Visit Provider Internal Medicine Pulmonary Disease
DX: I73.89 Other specified peripheral vascular diseases (principal)
CPT/HCPCS: 36415; 82085; 82550; 85597; 85598; 85613; 85730; 86147; 86160; 86225; 86235

== ENCOUNTER 2023-10-27 09:00 | Outpatient (AMB) | payer OTHER, SELFPAY ==
[2023-10-27 09:03] VITALS: BP 122/74; PULSE 67; O2SAT 98; BMI 36.4
--- NOTE | 2023-10-27 09:03 | MHC.OFFVIS ---
Vital Signs 10/27/23 09:03 Height 5 ft 1 in Weight 192 lb 14.472 oz BMI 36.4 BP 122/74 Blood Pressure Location Lt brachial Position Sitting Pulse 67 Pulse Source Doppler Pulse Oximetry (%) 98 Oxygen Delivery Method Room Air Intake Visit Reasons: Obstructive sleep apnea Allergies No Known Allergies [No Known Allergies*] Allergy (Verified 10/27/23 09:05) HPI HPI Obstructive sleep apnea: Details: 43-year-old lady with underlying history of moderate obstructive sleep apnea treated with CPAP referred for management of therapy. Patient states that she has been using her machine with good control of his symptoms. She has been getting her supplies from [facility]. She denies any problems at this time regarding her CPAP therapy underlying obstructive sleep apnea. Patient does complain of intermittent episodes of bilateral hand acrocyanosis that are mildly painful. She does have family history of lupus in one of her cousins. She denies personal history of rheumatologic diseases. She also complains of intermittent rash of anterior chest and of bilateral nasolabial folds. After the last office visit patient has extensive rheumatologic workup that was negative. She was evaluated by hand specialist and noted to have carpal tunnel syndrome. She continues to use her CPAP with good symptomatic control. [facility] Medical History Physical exam Cervical spondylosis without myelopathy CHELSEY (obstructive sleep apnea) Myofascial pain syndrome, cervical Bilateral occipital neuralgia Bilateral sacroiliitis Daytime sleepiness Neck pain Lumbar pain Fibromyalgia Anxiety Migraines Hypothyroidism Surgical History No pertinent past surgical history Family History Father Essential hypertension Kidney failure Mother Essential hypertension Family/Other FH: mental illness Paternal Aunt Ovarian cancer Stomach cancer Throat cancer Breast cancer Social History Housing: House Alcohol intake: current Alcohol intake frequency: holidays/special occasions only Patient Tobacco Use Status: Never used Tobacco e-Cigarette/Vaping Use: Never Used Second Hand Smoke Exposure: No service: No Current occupational status: employed Current occupational exposures/hazards: No Gender identity: Female Cognitive needs: No Hearing needs: No Vision needs: No Female Reproductive History Menstrual Age of Menarche: 10 Review of Systems Const Denies daytime sleepiness, Denies excessive sweating, Denies fatigue, Denies fever(s), Denies lethargy, Denies malaise, Denies night sweats, Denies snoring and Denies weight loss Eyes Denies blurry vision and Denies itchy eyes ENT Denies nasal congestion, Denies post nasal drip, Denies sinus pain, Denies sinus pressure and Denies other ( Thrush) Card Denies chest pain, Denies pedal edema, Denies dyspnea, Denies orthopnea and Denies paroxysmal nocturnal dyspnea Resp Denies cough, Denies hemoptysis, Denies excessive phlegm production, Denies dyspnea, Denies snoring and Denies wheezing GI Denies abdominal pain and Denies heartburn Musc Denies myalgias, Denies arthralgias and Denies joint swelling Skin/Breast Denies rash Neuro Denies memory loss and Denies seizure-like activity Psych Denies abnormal sleep pattern, Denies anxiety and Denies memory loss Endo Denies excessive sweating, Denies fatigue and Denies heat intolerance Temo/Lymph Denies easy bruising Aller/Immun Denies itchy eyes, Denies seasonal rhinorrhea and Denies wheezing Physical Exam Vital Signs: Last Vital Signs Pulse 67 10/27/23 09:03 BP 122/74 10/27/23 09:03 Pulse Ox 98 10/27/23 09:03 Oxygen Delivery Method Room Air 10/27/23 09:03 BMI result Body Mass Index 36.4 Const General: no acute distress and alert Nutritional Appearance: not obese Orientation/consciousness: Other orientation findings ( oriented) HEENT Head: Yes atraumatic Eyes General: appearance normal, both eyes and all related structures Sclerae: sclerae normal EOM: EOMs intact bilaterally Neck Neck: Yes supple Lymphatic: no lymphadenopathy noted Resp Effort & Inspection: normal respiratory effort and no use of accessory muscles Auscultation: clear to auscultation bilaterally Cardio Rate: regular rate Rhythm: regular rhythm Heart sounds: no gallops, no murmurs and no rubs Skin General skin exam: other ( warm) Extrem General: No clubbing, No cyanosis and No edema Assessment & Plan Assessment & Plan (1) Acrocyanosis: Code(s): I73.89 - Other specified peripheral vascular diseases Category: Medical (2) CHELSEY on CPAP: Code(s): G47.33 - Obstructive sleep apnea (adult) (pediatric); Z99.89 - Dependence on other enabling machines and devices Category: Medical Plan Sleep apnea symptoms well controlled on current CPAP therapy. Continue current CPAP therapy. Patient had an extensive rheumatologic workup that is negative at this time. She is following up with vascular surgery for possible vascular component. Patient also was noted to have carpal tunnel and continues to follow-up with his specialist. Coding Level of Care Code Est Pt Level 4 (12757) Diagnoses Acrocyanosis I73.89 CHELSEY on CPAP G47.33; Z99.89
== END 2023-10-27 09:10 | disposition home or self-care (01) ==
PROVIDERS: PCP Internal Medicine; Visit Provider Internal Medicine Pulmonary Disease
DX: I73.89 Other specified peripheral vascular diseases (principal); G47.33 Obstructive sleep apnea (adult) (pediatric); Z99.89 Dependence on other enabling machines and devices
CPT/HCPCS: 99214

== ENCOUNTER → 2023-10-27 09:00 | Outpatient (BNVA) | payer OTHER, SELFPAY | PROVIDERS: PCP Internal Medicine; Visit Provider Internal Medicine Pulmonary Disease ==

== ENCOUNTER 2023-10-28 07:28 | Outpatient (AMB) | payer OTHER, SELFPAY ==
--- NOTE | 2023-10-28 07:30 | MHC.PC.OV ---
Vital Signs 10/28/23 07:31 Height 5 ft 1 in Weight 192 lb BMI 36.3 BP 124/80 Blood Pressure Location Lt brachial Position Sitting Intake Visit Reasons: PE Intake Note: Patient here for a physical exam Security Services Specialist Required: No Accompanied by: Self / Same As Patient Allergies No Known Allergies [No Known Allergies*] Allergy (Verified 10/28/23 07:41) Medication List - Last Reconciled 10/28/23 by Bethany Day MD blood pressure monitor As directed CPAP (CPAP Machine/Device) autoPAP mode 6-16 cmH2O levonorgestrel (Mirena) intrauterine levothyroxine 75 mcg PO QAM metoclopramide HCl mg PO sertraline 50 mg PO QAM sumatriptan succinate 50 mg PO Q2-4H verapamil ER 120 mg PO DAILY Tobacco use date assessed: 10/28/23 Dental Screening Dental Screen Date: 10/28/23 Did you have a dental visit in the last 12 months?: Yes Did you have a dental problem in the last 6 months where you did not have access to dental care?: No Was dental information given to patient?: Patient has dentist HPI HPI Comments History of Present Illness Details This is a 43-year-old female with mild major depression that comes for her physical exam. Depression has improved with sertraline and follow-up visit was requested. Mammogram done 10/11/2023 was normal. Pap smear done 2020 was normal. She has obese with a BMI of 36.3 and has tried diet and exercise with no significant improvement. Will start her on Wegovy. Side effects were advised. She complains of left leg pain that started about 2 months ago. [facility] Medical History (Updated 10/28/23 @ 08:30 by Bethany Day MD) Acrocyanosis Physical exam Cervical spondylosis without myelopathy CHELSEY (obstructive sleep apnea) Myofascial pain syndrome, cervical Bilateral occipital neuralgia Bilateral sacroiliitis Daytime sleepiness Neck pain Lumbar pain Fibromyalgia Anxiety Migraines Hypothyroidism Surgical History No pertinent past surgical history Family History Father Essential hypertension Kidney failure Mother Essential hypertension Family/Other FH: mental illness Paternal Aunt Ovarian cancer Stomach cancer Throat cancer Breast cancer Social History Housing: House Alcohol intake: current Alcohol intake frequency: holidays/special occasions only Patient Tobacco Use Status: Never used Tobacco e-Cigarette/Vaping Use: Never Used Second Hand Smoke Exposure: No service: No Current occupational status: employed Current occupational exposures/hazards: No Gender identity: Female Cognitive needs: No Hearing needs: No Vision needs: No Female Reproductive History Menstrual Age of Menarche: 10 Questionnaire PHQ-9 Over the last 2 weeks, how often have you been bothered by any of the following problems? 1. Little interest or pleasure in doing things: several days 2. Feeling down, depressed, or hopeless: not at all 3. Trouble falling or staying asleep, or sleeping too much: not at all 4. Feeling tired or having little energy: not at all 5. Poor appetite or overeating: not at all 6. Feeling bad about yourself - or that you are a failure or have let yourself or your family down: not at all 7. Trouble concentrating on things, such as reading the newspaper or watching television: not at all 8. Moving or speaking so slowly that other people could have noticed. Or the opposite - being so fidgety or restless that you have been moving around a lot more than usual: not at all 9. Thoughts that you would be better off or of hurting yourself in some way: not at all Total score: 1 Depression Screening Interpretation: Positive Depression Screening Follow-up: Existing condition, In treatment and Follow-up Visit Requested Depression Screening Done: Yes 62814 - PHQ-9 Billing: Yes Source: Developed by Drs. Joaquín Zuleta, Lilliam Payne, Gabriel Mancuso and colleagues, with an educational monet from [employer]. Thrive Questionnaire Date Thrive assessed: 10/28/23 I am a: Patient What is your living situation today?: I have a steady place to live Within the past 12 months, did the food you bought not last and you didn't have the money to get more?: Never true Within the past 12 months, did you worry whether your food would run out before you got money to buy more?: Never true Do you have trouble paying for medicines?: No Do you have trouble getting transportation to medical appointments?: No Do you have trouble paying your heating and electricity bill?: No Do you have trouble taking care of your child, family member or friend?: No Do you have trouble with day-to-day activities such as bathing, preparing meals, shopping, managing finances, etc.?: No Are you currently unemployed and looking for a job?: No Are you interested in more education?: No Please select the resources that you would like help with: None Currently or been in a relationship where the following occur: no concerns reported THRIVE Score: 0 AUDIT C Alcohol Use Questionnaire (AUDIT-C) 1. How often do you have a drink containing alcohol?: Monthly or less 2. How many drinks containing alcohol do you have on a typical day when you are drinking?: 1 or 2 3. How often do you have six or more drinks on one occasion?: Never Total Score: 1 Score Reviewed/Action Taken: No ZOË-7 AMB Questionnaire ZOË-7 Date ZOË - 7 assessed: 10/28/23 Feeling nervous, anxious, or on edge: 1 = Several days Not being able to stop or control worryin = Not at all Worrying too much about different things: 0 = Not at all Trouble relaxin = Not at all Being so restless that it is hard to sit still: 0 = Not at all Becoming easily annoyed or irritable: 0 = Not at all Feeling afraid as if something awful might happen: 0 = Not at all Total ZOË-7 score (0-4 normal; 5-9 mild; 10-14 moderate; 15-21 severe): 1 Source: Developed by Drs. Joaquín Zuleta, Lilliam Payne, Gabriel Mancuso and colleagues, with an educational monet from [employer]. ZOË-7 Assessment Billing ZOË-7 Assessment Tool: ZOË-7 Assessment 84365 Review of Systems Const All systems reviewed & are unremarkable except as noted in HPI and below Card Denies chest pain at rest, Denies chest pain with activity, Denies edema, Denies irregular heart rhythm, Denies claudication, Denies dyspnea, Denies dyspnea on exertion, Denies orthopnea, Denies paroxysmal nocturnal dyspnea and Denies slow heart rate Resp Denies cough, Denies dyspnea and Denies dyspnea on exertion Physical exam (Primary Care) Vital Signs: Last Vital Signs BP 124/80 10/28/23 07:31 BMI result Body Mass Index 36.3 BMI Assessment/Plan discussion: High BMI High, discussed plan: lifestyle, weight reduction, dietary and physical activity Tobacco/Smoking Status: Tobacco use Status Tobacco use date assessed 10/28/23 10/28/23 07:35 Patient Tobacco Use Status Never used Tobacco 10/28/23 07:35 e-Cigarette/Vaping Use Never Used 10/28/23 07:35 PHQ-9: PHQ-9 Score PHQ-9: Total score 1 10/28/23 07:48 Depression Screening Interpretation: Positive Depression Screening Follow-up: Existing condition, In treatment and Follow-up Visit Requested Thrive Assessment: Date of Thrive Assessment Date Thrive assessed 10/28/23 10/28/23 07:35 Currently or been in a relationship where the following occur: no concerns reported Const Orientation/consciousness: patient oriented x3 HENMT Head: Yes normal to inspection, Yes normocephalic and Yes atraumatic Ears: external ears normal Eyes General: appearance normal, both eyes and all related structures Eyelids: Yes eyelids normal Conjunctivae: conjunctivae normal Neck Neck: Yes normal visual inspection and Yes supple Resp Effort & Inspection: normal respiratory effort Auscultation: clear to auscultation bilaterally Cardio Jugular venous distension: no JVD Rate: regular rate Rhythm: regular rhythm Heart sounds: S1 normal heart sound present and S2 normal heart sound present GI Inspection: Yes normal to inspection Palpation (GI): Soft to palpation and nontender Auscultation: normal bowel sounds Skin General skin exam: no rashes or lesions noted Neuro General: patient oriented x3 and no focal motor deficits Extrem General: Yes full ROM Psych Appearance: grossly normal Assessment and Plan Assessment & Plan (1) Physical exam: Code(s): Z00.00 - Encounter for general adult medical examination without abnormal findings Plan: Repeat in a year. (2) Mild major depression: Code(s): F32.0 - Major depressive disorder, single episode, mild Plan: Continue sertraline. Orders: Orders US venous duplex LE LT Today M79.605 - Pain in left leg XR knee LT 2V Today M25.562 - Pain in left knee Thyroid Stimulating Hormone Today E03.9 - Hypothyroidism, unspecified Comprehensive [place]. Panel Fast Today Z00.00 - Encounter for general adult medical examination without abnormal findings Lipid Panel Today Z00.00 - Encounter for general adult medical examination without abnormal findings Vitamin D 25-OH Total Today E55.9 - Vitamin D deficiency, unspecified Complete Blood Count Auto Diff Today M54.32 - Sciatica, left side Medications: New semaglutide (weight loss) ([place]) administer weeks 1 through 4 of therapy 0.25 mg (0.5 mL) subcut QWEEK 2 mL 0RF 4 weeks E66.9 - Obesity, unspecified, Z68.36 - Body mass index [BMI] 36.0-36.9, adult Coding Level of Care Code Est Pt Prev Care 40-64y(88714) Diagnoses Physical exam Z00.00 Mild major depression F32.0 Additional Codes ZOË-7 Assessment Billing - ZOË-7 Assessment Tool: ZOË-7 Assessment 67611 ([id number]) Time Spent (min) 31
[2023-10-28 07:31] VITALS: BP 124/80; BMI 36.3
== END 2023-10-28 07:53 | disposition home or self-care (01) ==
PROVIDERS: Visit Provider Internal Medicine
DX: Z00.00 Encounter for general adult medical examination without abnormal findings (principal); F32.0 Major depressive disorder, single episode, mild
CPT/HCPCS: 99396

== ENCOUNTER 2023-10-28 08:35 | Outpatient (REF) | payer OTHER, SELFPAY ==
--- NOTE | ~2023-10-28 | XR_ITS ---
EXAMINATION: XR KNEE, LEFT CLINICAL INFORMATION: Pain in left knee COMPARISON: None available. TECHNIQUE: Two views of the left knee. FINDINGS: No significant joint effusion. Mild narrowing of the medial compartment. Tiny tricompartmental osteophytes. XR/XR knee LT 2V IMPRESSION: Mild degenerative changes.
[2023-10-28 09:06] LABS: MANUAL DIFF FLAG NO
[2023-10-28 09:44] LABS: Basophils Percent Auto 0.5 % (0-2); Eosinophils Absolute Auto 0.2 X10*3/uL (0.0-0.4); Eosinophils Percent Auto 2.7 % (0-4); Hematocrit 40.5 % (37.0-47.0); Hemoglobin 12.9 g/dl (12.0-16.0); Imm Gran Abs Auto 0.05 X10*3/uL (0.00-0.03); Imm Gran Pct Auto 0.6 % (0.0-0.4); Lymphocytes Absolute Auto 2.6 X10*3/uL (1.2-4.9); Lymphocytes Percent Auto 29.7 % (20-40); Mean Corpuscular HGB Conc 31.9 g/dl (31.0-35.0); Mean Corpuscular Hemoglobin 27.3 pg (27.0-33.0); Mean Corpuscular Volume 85.8 fL (80.0-98.0); Mean Platelet Volume 10.8 fL (9.4-12.3); Monocytes Absolute Auto 0.6 X10*3/uL (0.1-1.2); Monocytes Percent Auto 7.3 % (2-11); Neutrophils Absolute Auto 5.1 x10*3/uL (2.0-8.3); Neutrophils Percent Auto 59.2 % (45-73); Platelet Count 295 X10*3/uL (160-400); Red Blood Count 4.72 X10*6/uL (4.20-5.50); Red Cell Distribution Width 13.3 % (11.0-16.0); White Blood Count 8.6 X10*3/uL (4.8-10.8)
[2023-10-28 10:22] LABS: Alanine Aminotransferase 13 U/L (0-31); Alkaline Phosphatase 81 U/L (39-117); Anion Gap 11 (12-20); Aspartate Amino Transferase 15 U/L (5-31); Bilirubin Total 0.4 mg/dL (0.0-1.0); Blood Urea Nitrogen 15 mg/dL (9-16); Carbon Dioxide 23 mmol/L (22-29); Chloride 109 mmol/L (96-108); Cholesterol 176 mg/dL (<200); Estimated Glomerular Filt Rate > 60; Glucose Fasting 95 mg/dL (60-99); HDL Cholesterol 38 mg/dL (>40); LDL Cholesterol Calculated 123 mg/dL (<100); Potassium 3.7 mmol/L (3.3-5.1); Sodium 139 mmol/L (135-145); Total Protein 7.4 g/dL (6.5-8.0); Triglycerides 76 mg/dL (<150)
[2023-10-28 10:42] LABS: Thyroid Stimulating Hormone 1.55 uIU/mL (0.32-4.0); Vitamin D 25-OH Total 34.8 ng/mL (>30)
== END 2023-10-28 08:36 | disposition home or self-care (01) ==
LOC: HO.XRAY 08:35
PROVIDERS: PCP Internal Medicine; Visit Provider Internal Medicine
DX: M25.562 Pain in left knee (principal); Z00.00 Encounter for general adult medical examination without abnormal findings; E03.9 Hypothyroidism, unspecified; E55.9 Vitamin D deficiency, unspecified; M54.32 Sciatica, left side
CPT/HCPCS: 36415; 73560; 80053; 80061; 82306; 84443; 85025

== ENCOUNTER 2023-10-29 11:18 | Outpatient (REF) | payer OTHER, SELFPAY ==
--- NOTE | ~2023-10-29 | US_ITS ---
EXAMINATION: US VENOUS ULTRASOUND WITH DOPPLER LOWER EXTREMITY, LEFT CLINICAL INFORMATION: Pain COMPARISON: None available. TECHNIQUE: Ultrasound of the deep veins is performed from the hip to the calf with compression sonography and color and pulse Doppler assessment. Spectral analysis with color-flow imaging is performed. FINDINGS: There is normal venous compression and respiratory variation and augmented flow. The visualized common femoral vein, superficial femoral vein, profunda femoral vein, popliteal vein, and the trifurcation region shows no evidence of deep venous thrombosis. There is no significant popliteal fossa cyst. The contralateral right common femoral vein is patent. US/US venous duplex LE LT IMPRESSION: No DVT demonstrated in the left lower extremity.
== END 2023-10-29 11:19 | disposition home or self-care (01) ==
LOC: HO.US 11:18
PROVIDERS: PCP Internal Medicine; Visit Provider Internal Medicine
DX: M79.605 Pain in left leg (principal)
CPT/HCPCS: 93971

== ENCOUNTER 2024-02-28 16:43 | Outpatient (AMB) | payer OTHER, SELFPAY ==
--- NOTE | 2024-02-28 16:44 | A.OFFPC_ITS ---
Vital Signs 02/28/24 16:54 Height 5 ft 1 in Weight 200 lb BMI 37.8 BP 124/80 Blood Pressure Location Lt brachial Position Sitting Intake Visit Reasons: bp, thyroid Intake Note: Patient here for a follow up Bp, Thyroid Smoke Inspector Required: No Accompanied by: Self / Same As Patient Allergies No Known Allergies [No Known Allergies*] Allergy (Verified 02/28/24 17:02) Medication List - Last Reconciled 02/28/24 by Bethany Day MD blood pressure monitor As directed CPAP (CPAP Machine/Device) autoPAP mode 6-16 cmH2O levonorgestrel (Mirena) intrauterine levothyroxine 75 mcg PO QAM metoclopramide HCl mg PO sertraline 50 mg PO QAM sumatriptan succinate 50 mg PO Q2-4H verapamil ER 120 mg PO DAILY Tobacco use date assessed: 10/28/23 Dental Screening Dental Screen Date: 10/28/23 HPI HPI Comments History of Present Illness Details This is a 44-year-old female with hypothyroidism, migraines and hypertension as well as mild major depression that comes today for follow-up on her conditions. TSH normal. Migraines stable with sumatriptan as needed. Blood pressure well controlled. Has depression and would like to increase sertraline. No chest pain or shortness on breath. She is obese with a BMI of 37.8 and is doing diet and exercise to reach BMI goal less than 30. FORMERLY [facility], [facility] Medical History (Updated 02/28/24 @ 17:08 by Bethany Day MD) Acrocyanosis Physical exam Cervical spondylosis without myelopathy CHELSEY (obstructive sleep apnea) Myofascial pain syndrome, cervical Bilateral occipital neuralgia Bilateral sacroiliitis Daytime sleepiness Neck pain Lumbar pain Fibromyalgia Anxiety Migraines Hypothyroidism Surgical History No pertinent past surgical history Family History Father Essential hypertension Kidney failure Mother Essential hypertension Family/Other FH: mental illness Paternal Aunt Ovarian cancer Stomach cancer Throat cancer Breast cancer Social History Housing: House Alcohol intake: current Alcohol intake frequency: holidays/special occasions only Patient Tobacco Use Status: Never used Tobacco e-Cigarette/Vaping Use: Never Used Second Hand Smoke Exposure: No service: No Current occupational status: employed Current occupational exposures/hazards: No Gender identity: Female Cognitive needs: No Hearing needs: No Vision needs: No Female Reproductive History Menstrual Age of Menarche: 10 Questionnaire Thrive Questionnaire Date Thrive assessed: 10/28/23 Are you currently unemployed and looking for a job?: No ZOË-7 AMB Questionnaire ZOË-7 Date ZOË - 7 assessed: 10/28/23 Source: Developed by Drs. Joaquín Zuleta, Lilliam Payne, Gabriel Mancuso and colleagues, with an educational monet from [employer]. Review of Systems Const All systems reviewed & are unremarkable except as noted in HPI and below Card Denies chest pain at rest, Denies chest pain with activity, Denies edema, Denies irregular heart rhythm, Denies claudication, Denies dyspnea, Denies dyspnea on exertion, Denies orthopnea, Denies paroxysmal nocturnal dyspnea and Denies slow heart rate Resp Denies cough, Denies dyspnea and Denies dyspnea on exertion GI Denies abdominal pain, Denies change in bowel habits, Denies excessive flatus, Denies nausea and Denies vomiting Denies urinary incontinence, Denies urinary hesitancy and Denies urinary urgency Musc Denies atrophy, Denies deformity and Denies limited range of motion Skin/Breast Denies bleeding lesions, Denies changing lesions and Denies rash Physical exam (Primary Care) Vital Signs: Last Vital Signs BP 124/80 02/28/24 16:54 BMI result Body Mass Index 37.8 BMI Assessment/Plan discussion: High BMI High, discussed plan: lifestyle, weight reduction, dietary and physical activity Tobacco/Smoking Status: Tobacco use Status Tobacco use date assessed 10/28/23 02/28/24 16:44 Patient Tobacco Use Status Never used Tobacco 02/28/24 16:44 e-Cigarette/Vaping Use Never Used 02/28/24 16:44 Thrive Assessment: Date of Thrive Assessment Date Thrive assessed 10/28/23 02/28/24 16:44 Resp Effort & Inspection: normal respiratory effort Auscultation: clear to auscultation bilaterally Cardio Jugular venous distension: no JVD Rate: regular rate Rhythm: regular rhythm Heart sounds: S1 normal heart sound present and S2 normal heart sound present Extrem General: Yes full ROM Office Procedures Flu Questionnaire Does the patient have a severe egg allergy?: No Immunizations Fluarix Triv [id number] (PF) 45 mcg (15 mcg x 3)/0.5 mL IM syringe Performing Provider: Bethany Day MD [facility] [place] Documented (not given) by: Dimas Cavazos Christopher on 02/28/24 16:58 Reason Not Given: Patient Refused Coding Level of Care Code Est Pt Level 4 (20132) Complex EM visit Add On G2211 Diagnoses Mild major depression F32.0 Essential hypertension I10 Hypothyroidism, unspecified type E03.9 Hypothyroidism type: unspecified Migraine without status migrainosus, not intractable, unspecified migraine type G43.909 Migraine type: unspecified Status migrainosus presence: without status migrainosus Intractability: not intractable Time Spent (min) 23 Assessment & Plan Assessment & Plan (1) Mild major depression: Code(s): F32.0 - Major depressive disorder, single episode, mild Category: Medical Plan: Increase sertraline. (2) Essential hypertension: Code(s): I10 - Essential (primary) hypertension Category: Medical Plan: Continue verapamil. Blood pressure goal is equal or less than 130/80. (3) Hypothyroidism: Code(s): E03.9 - Hypothyroidism, unspecified Category: Medical Qualifiers: Hypothyroidism type: unspecified Qualified Code(s): E03.9 - Hypothyroidism, unspecified Plan: Continue levothyroxine. (4) Migraines: Code(s): G43.909 - Migraine, unspecified, not intractable, without status migrainosus Category: Medical Qualifiers: Migraine type: unspecified Status migrainosus presence: without status migrainosus Intractability: not intractable Qualified Code(s): G43.909 - Migraine, unspecified, not intractable, without status migrainosus Plan: Continue sumatriptan as needed. Orders: Orders Influenza [id number] Immunization Today Z23 - Encounter for immunization Thyroid Stimulating Hormone Today E03.9 - Hypothyroidism, unspecified XR KUB Today N20.0 - Calculus of kidney Medications: New sertraline (Zoloft) 25 mg PO DAILY 90 tabs 2RF 90 days
[2024-02-28 16:54] VITALS: BP 124/80; BMI 37.8
== END 2024-02-28 17:14 | disposition home or self-care (01) ==
PROVIDERS: PCP Internal Medicine; Visit Provider Internal Medicine
DX: F32.0 Major depressive disorder, single episode, mild (principal); I10 Essential (primary) hypertension; E03.9 Hypothyroidism, unspecified; G43.909 Migraine, unspecified, not intractable, without status migrainosus; Z23 Encounter for immunization

== ENCOUNTER → 2024-02-28 16:43 | Outpatient (BNVA) | payer OTHER, SELFPAY | PROVIDERS: PCP Internal Medicine; Visit Provider Internal Medicine | DX: F32.0 Major depressive disorder, single episode, mild (principal); I10 Essential (primary) hypertension; E03.9 Hypothyroidism, unspecified; G43.909 Migraine, unspecified, not intractable, without status migrainosus; Z79.899 Other long term (current) drug therapy; Z28.21 Immunization not carried out because of patient refusal | CPT/HCPCS: 90471 ==

== ENCOUNTER 2024-03-16 15:49 | Outpatient (REF) | payer OTHER, SELFPAY ==
--- NOTE | ~2024-03-16 | XR_ITS ---
EXAMINATION: XR ABDOMEN KUB CLINICAL INDICATION: N20.0 - Calculus of kidney. COMPARISON: None available. TECHNIQUE: 2 AP views of the abdomen. FINDINGS: IUD in the pelvis. Nonobstructive bowel gas pattern. Moderate amount of stool in the colon. Visualization of the bilateral kidneys is limited due to overlying bowel. No definitive renal calculi identified, although visualization limited due to overlying bowel. Degenerative changes in the lumbar spine. Small calcifications in the left pelvis, possibly distal left ureteral. XR/XR KUB IMPRESSION: No definitive renal calculi identified, although visualization limited due to overlying bowel. Electronically signed by: Terri Garcia MD 04/25/2024 09:52 AM EST
== END 2024-03-16 15:50 | disposition home or self-care (01) ==
LOC: HO.XRAY 15:49
PROVIDERS: PCP Internal Medicine; Visit Provider Internal Medicine
DX: N20.0 Calculus of kidney (principal)
CPT/HCPCS: 74018

== ENCOUNTER 2024-03-28 20:34 | Emergency (ER) | payer OTHER, SELFPAY ==
--- NOTE | ~2024-03-28 | CT_ITS ---
EXAMINATION: CT ABDOMEN AND PELVIS WITHOUT CONTRAST CLINICAL INFORMATION: Left flank pain. COMPARISON: None available. TECHNIQUE: Multidetector volumetric imaging was performed from the superior aspect of the liver through the pubic symphysis. Sagittal and coronal reformatted images were obtained on the technologist's workstation. This CT examination was performed using dose optimization techniques as appropriate, variously including the following: *Automated exposure control *Adjustment of mA and/or kV according to patient size (this includes techniques or standardized protocols for targeted exams where dose is matched to indication/reason for exam; i.e. extremities or head) *Use of iterative reconstruction technique DLP: 727 mGy-cm FINDINGS: LUNG BASES: There is minimal atelectatic change at the right lung base. LIVER, GALLBLADDER, AND BILIARY TREE: The liver is normal in size, shape, and attenuation. No focal hepatic lesion or biliary ductal dilatation is present. The gallbladder is unremarkable with no evidence of radiopaque gallstones, gallbladder wall thickening, or obvious pericholecystic inflammatory changes. PANCREAS: Unremarkable. SPLEEN: Unremarkable. ADRENAL GLANDS: Unremarkable. KIDNEYS AND URETERS: The kidneys are normal in size, shape, and attenuation. There is left perinephric stranding/fluid. There is mild left hydronephrosis and hydroureter extending into the pelvis to the level of a 6 x 3 mm calculus distal left ureter. There is fluid seen tracking along the retroperitoneum/left ureter into the pelvis. BLADDER: Unremarkable. GASTROINTESTINAL TRACT: The small and large bowel are unremarkable. The appendix is unremarkable. ABDOMINAL WALL: No significant hernia is appreciated. LYMPH NODES: Normal. VASCULAR: Unremarkable. PELVIC VISCERA: There is an IUD within the uterus which appears to be partially within the myometrium. OSSEOUS STRUCTURES: Unremarkable. CT/CT abdomen pelvis wo IV con IMPRESSION: 1. Mild left hydronephrosis and hydroureter extending into the pelvis to the level of a 6 x 3 mm calculus in the distal left ureter. There is left perinephric stranding/fluid. There is fluid seen tracking along the retroperitoneum/left ureter into the pelvis. Consider calyceal rupture. 2. There is an IUD within the uterus which appears to be partially within the myometrium. Fleischner guidelines were followed. Electronically signed by: Zi Thomason MD 03/29/2024 04:57 AM EST
[2024-03-28 21:04] VITALS: BP 157/101; PULSE 84; RESP 20; TEMP 36.9; O2SAT 98; BMI 35.9
[2024-03-28 21:26] LABS: Hematocrit 39.9 % (37.0-47.0); Hemoglobin 12.9 g/dl (12.0-16.0); Mean Corpuscular HGB Conc 32.3 g/dl (31.0-35.0); Mean Corpuscular Hemoglobin 26.8 pg (27.0-33.0); Mean Corpuscular Volume 82.8 fL (80.0-98.0); Mean Platelet Volume 9.8 fL (9.4-12.3); Platelet Count 322 X10*3/uL (160-400); Red Blood Count 4.82 X10*6/uL (4.20-5.50); Red Cell Distribution Width 13.8 % (11.0-16.0); White Blood Count 15.8 X10*3/uL (4.8-10.8)
[2024-03-28 21:28] LABS: Appearance Urine Clear; Color Urine Yellow; Glucose Urine UA Negative (Negative); Leukocyte Esterase Urine Small (1+) (Negative); Nitrite Urine Negative (Negative); UMIC TRIGGER UACC YES; Urine Blood Small (1+) (Negative); Urine Ketones Trace mg/dL (Negative); Urine Protein Negative (Neg-Trace)
[2024-03-28 21:44] LABS: Bacteria Urine None Seen (None Seen); Hyaline Casts Urine 0-2 /LPF (0-2); Squamous Epithelial Cell Urine 0-2 /HPF (0-2); UACC Culture Trigger YES
[2024-03-28 21:49] LABS: Alanine Aminotransferase 19 U/L (0-31); Alkaline Phosphatase 90 U/L (39-117); Anion Gap 13 (12-20); Aspartate Amino Transferase 25 U/L (5-31); Bilirubin Total 0.4 mg/dL (0.0-1.0); Blood Urea Nitrogen 17 mg/dL (9-16); Calcium 8.9 mg/dL (8.4-10.2); Carbon Dioxide 19 mmol/L (22-29); Chloride 106 mmol/L (96-108); Creatinine Clr Calc Pharmacy 73.8; Estimated Glomerular Filt Rate > 60; Glucose Random 117 mg/dL (60-115); HCG Quantitative < 2 mIU/mL; Potassium 3.6 mmol/L (3.3-5.1); Sodium 134 mmol/L (135-145); Total Protein 7.7 g/dL (6.5-8.0)
[2024-03-29 00:57] LABS: Lipase 15 U/L (8-78)
[2024-03-29 02:20] VITALS: BP 148/86; PULSE 77; RESP 18; TEMP 36.9; O2SAT 98
--- NOTE | 2024-03-29 02:21 | MHC.EDTECH ---
Assumed care of patient at this time,rounded and introduced self to pt,vitals taken,patient is resting quietly,call rosen in reach
--- NOTE | 2024-03-29 03:52 | ED_ITS ---
HPI - Female Genitourinary General Chief complaint: Urogenital-Female Stated complaint: Left Flank Pain Time Seen by Provider: 03/29/24 03:45 Source: patient Mode of arrival: ambulatory Limitations: no limitations History of Present Illness ED Provider: Dr. Alisson Blevins HPI Narrative: Patient comes to the emergency room complaining 2-1/2 days of left-sided flank pain. Patient states that she has had kidney stones in the past. Patient reports hematuria, denies fever chills. Patient states that sometimes the pain radiates towards the left abdominal side. However most of the pain is in the back/flank. Related Data Home Medications ?Medication ?Instructions ?Recorded ?Confirmed sumatriptan succinate 50 mg tablet 50 mg PO Q2-4H 02/03/21 02/28/24 verapamil 120 mg tablet,extended 120 mg PO DAILY 02/24/22 02/28/24 release levonorgestrel 21 mcg/24 hr (up to intrauterine 05/28/22 02/28/24 8 years) 52 mg intrauterine device (Mirena) sertraline 25 mg tablet 50 mg PO QAM 10/14/22 02/28/24 metoclopramide HCl 5 mg tablet mg PO 03/30/23 02/28/24 Previous Rx's ?Medication ?Instructions ?Recorded CPAP (CPAP Machine/Device) #1 ea 06/05/21 blood pressure monitor #1 ea 03/30/23 levothyroxine 75 mcg tablet 75 mcg PO QAM #90 tabs 01/03/24 sertraline 25 mg tablet (Zoloft) 25 mg PO DAILY 90 days #90 tabs 02/28/24 cefuroxime axetil 250 mg tablet 250 mg PO BID 5 days #10 tabs 03/29/24 ketorolac 10 mg tablet 10 mg PO Q8H PRN pain #12 tabs 03/29/24 ondansetron HCl 4 mg tablet 4 mg PO Q6H PRN nausea and 03/29/24 vomiting #10 tabs prednisone 20 mg tablet 20 mg PO DAILY #2 tabs 03/29/24 tamsulosin 0.4 mg capsule (Flomax) 0.4 mg PO DAILY #14 caps 03/29/24 Allergies Allergy/AdvReac Type Severity Reaction Status Date / Time No Known Allergies Allergy Verified 03/28/24 21:06 [No Known Allergies*] Review of Systems 2 Review of Systems: Constitutional : No Weight loss, No Fever, No Chills, No Night Sweats, No Fatigue, No Malaise ENT/Mouth : No Hearing loss, No Ear Pain, No Nasal Congestion, No Sinus Pain, No Hoarseness, No sore throat, No Rhinorrhea, No Swallowing Difficulty Eyes: No Eye Pain, No Swelling, No Redness, No Foreign Body, No Discharge, No Vision Changes Cardiovascular : No Chest Pain, No SOB, No Dyspnea on Exertion, No Orthopnea, No Edema, No Palpitations Respiratory : No Cough, No Sputum, No Wheezing, No Smoke Exposure, No Dyspnea Gastrointestinal : No Nausea, No Vomiting, No Diarrhea, No Constipation, No abdominal Pain, No Hematochezia, No Melena Genitourinary : no irregular bleeding, No Dysuria, No Urinary Frequency, complaining of hematuria and left-sided flank pain, constant pain but intermittently gets worse. Musculoskeletal : No joint pain, No Myalgias, No Joint Swelling Skin : No Skin Lesions, No rash Neuro : No Weakness, No Numbness, No Paresthesias, No Loss of Consciousness, No Dizziness, No Headache Psych : No Anxiety/Panic, No Depression, No SI/HI/AH/VH, No Social Issues, Heme/Lymph: No Bruising, No Bleeding,No Lymphadenopathy Endocrine : No Polyuria, No Polydipsia, No Temperature Intolerance PMFSH Past Medical History Medical History Acrocyanosis Physical exam Cervical spondylosis without myelopathy CHELSEY (obstructive sleep apnea) Myofascial pain syndrome, cervical Bilateral occipital neuralgia Bilateral sacroiliitis Daytime sleepiness Neck pain Lumbar pain Fibromyalgia Anxiety Migraines Hypothyroidism Surgical History No pertinent past surgical history Family History Family History Father Essential hypertension Kidney failure Mother Essential hypertension Family/Other FH: mental illness Paternal Aunt Ovarian cancer Stomach cancer Throat cancer Breast cancer Social History Social History Housing: House Alcohol intake: current Alcohol intake frequency: does not drink Patient Tobacco Use Status: Never used Tobacco Smoked in Last 30 Days: No e-Cigarette/Vaping Use: Never Used Second Hand Smoke Exposure: No Use of substances other than those prescribed or required for medical reasons: No Advance Directives: No Advance Directives Information Provided: Yes Patient : No service: No Current occupational status: employed Current occupational exposures/hazards: No Gender identity: Female Cognitive needs: No Hearing needs: No Vision needs: No Physical Exam 2 Vital Signs: Vital Signs: Last Vital Signs Temp 98.5 F 03/29/24 02:20 Pulse 77 03/29/24 02:20 Resp 18 03/29/24 02:20 BP 148/86 H 03/29/24 02:20 Pulse Ox 98 03/29/24 02:20 O2 Del Method Room Air 03/29/24 02:20 BMI result Body Mass Index 35.9 Const: Other: Appearance: Alert. Oriented X3. No acute distress. Eyes: Pupils equal, round and reactive to light. ENT: Pharynx normal. Neck: Normal inspection. Neck supple. No lymph nodes noted. No crepitus CVS: Normal heart rate and rhythm. Pulses normal. Normal S1 and S2 Respiratory: No respiratory distress. Breath sounds normal. No Wheezing. No rales Abdomen: Soft and nontender. No rigidity. No distention. Skin: Skin warm and dry. Normal skin color. Normal skin turgor. Extremities: No lower extremity edema. No Lacerations. No Rash Neuro: Oriented X 3. No motor deficit. No sensory deficit. Moving all extremities. No slurred speech. CN 2 through 12 grossly intact Psych: calm, cooperative, normal affect Medications Administered Discontinued Medications Generic Name Dose Route Start Last Admin Trade Name Roslyn PRN Reason Stop Dose Admin Ketorolac Tromethamine 60 mg 03/29/24 04:13 03/29/24 05:04 Ketorolac Tromethamine 60 Mg/2 Ml Vial IM 03/29/24 04:14 60 mg ONCE ONE Administration Levofloxacin 500 mg 03/29/24 05:16 03/29/24 05:23 Levofloxacin 500 Mg Tablet PO 03/29/24 05:17 500 mg ONCE ONE Administration Ondansetron HCl 4 mg 03/29/24 05:16 03/29/24 05:23 Ondansetron Odt 4 Mg Tab.Rapdis TRANSLINGU 03/29/24 05:17 4 mg ONCE ONE Administration Prednisone 20 mg 03/29/24 05:16 03/29/24 05:23 Prednisone 20 Mg Tablet PO 03/29/24 05:17 20 mg ONCE ONE Administration Tamsulosin HCl 0.4 mg 03/29/24 05:16 03/29/24 05:23 Tamsulosin Hcl 0.4 Mg Capsule PO 03/29/24 05:17 0.4 mg ONCE ONE Administration Medical Decision Making Medical Decision Making [facility] Narrative: My interpretation of labs: Patient's white blood cell count is 15.8, rest of hematology no obvious abnormality. Chemistry within normal limits, hCG negative, lipase and LFTs normal, urinalysis positive for blood. -patient declined pain medication at this time -CT scan shows mild hydronephrosis and hydroureter exiting into the pelvis, 6 mm x 3 mm calculus in the distal ureter, there is left perinephric stranding and there is fluid tracking along the retroperitoneum/left ureter into the pelvis, possible calyceal rupture -patient states that she would like to be discharged, patient states that she still feels in pain but would prefer not to be hospitalized. -consult message was sent to kiko Hackett to send the patient home with Ceftin 250 mg b.i.d. Differential Diagnosis Differential Diagnoses: The differential diagnosis associated with the presentation includes (Kidney stone, pyelonephritis) Admission/Observation Consideration of admission/observation: Escalation of care including admission/observation considered (Given the patient's pain and discomfort, observation/admission was offered. Patient declined) Consult Healthcare Provider Management of the patient was discussed with: Ground Defence Officer Lab Data [facility] Lab Attestation statement: I reviewed the patient's lab results. 03/28/24 21:21 03/28/24 21:21 Labs: Lab Results 03/28/24 Range/Units 21:21 WBC 15.8 H (4.8-10.8) X10*3/uL RBC 4.82 (4.20-5.50) X10*6/uL Hgb 12.9 (12.0-16.0) g/dl Hct 39.9 (37.0-47.0) % MCV 82.8 (80.0-98.0) fL MCH 26.8 L (27.0-33.0) pg MCHC 32.3 (31.0-35.0) g/dl RDW 13.8 (11.0-16.0) % Plt Count 322 (160-400) X10*3/uL MPV 9.8 (9.4-12.3) fL Absolute Nucleated RBC 0.000 (0.0-0.012) X10*3/uL Nucleated RBC % (auto) 0.0 (0.0-0.2) /100WBC Sodium 134 L (135-145) mmol/L Potassium 3.6 (3.3-5.1) mmol/L Chloride 106 (96-108) mmol/L Carbon Dioxide 19 L (22-29) mmol/L Anion Gap 13 (12-20) BUN 17 H (9-16) mg/dL Creatinine 0.97 (0.5-1.4) mg/dL Estim Creat Clear Calc 73.8 Estimated GFR > 60 Random Glucose 117 H (60-115) mg/dL Calcium 8.9 (8.4-10.2) mg/dL Total Bilirubin 0.4 (0.0-1.0) mg/dL AST 25 (5-31) U/L ALT 19 (0-31) U/L Alkaline Phosphatase 90 (39-117) U/L Total Protein 7.7 (6.5-8.0) g/dL Albumin 4.0 (3.5-5.0) g/dL Lipase 15 (8-78) U/L Beta HCG, Quant < 2 mIU/mL Urine Color Yellow Urine Appearance Clear Urine pH 7.0 (5.0-9.0) Ur Specific [place] 1.020 (1.005-1.025) Urine Protein Negative (Neg-Trace) mg/dL Urine Glucose (UA) Negative (Negative) mg/dL Urine Ketones Trace (Negative) mg/dL Urine Blood Small (1+) H (Negative) Urine Nitrite Negative (Negative) Ur Leukocyte Esterase Small (1+) H (Negative) Urine RBC 3-5 H (0-2) /HPF Urine WBC 6-10 H (0-5) /HPF Ur Squamous Epith Cells 0-2 (0-2) /HPF Urine Bacteria None Seen (None Seen) Hyaline Casts 0-2 (0-2) /LPF Independent Interpretation I performed an independent interpretation of an: CT Scan Radiology Impression Discussion of test interpretation with radiology: I have reviewed the radiologist's reading. Radiologist Impression: LIVER, GALLBLADDER, AND BILIARY TREE: The liver is normal in size, shape, and attenuation. No focal hepatic lesion or biliary ductal dilatation is present. The gallbladder is unremarkable with no evidence of radiopaque gallstones, gallbladder wall thickening, or obvious pericholecystic inflammatory changes. PANCREAS: Unremarkable. SPLEEN: Unremarkable. ADRENAL GLANDS: Unremarkable. KIDNEYS AND URETERS: The kidneys are normal in size, shape, and attenuation. There is left perinephric stranding/fluid. There is mild left hydronephrosis and hydroureter extending into the pelvis to the level of a 6 x 3 mm calculus distal left ureter. There is fluid seen tracking along the retroperitoneum/left ureter into the pelvis. BLADDER: Unremarkable. GASTROINTESTINAL TRACT: The small and large bowel are unremarkable. The appendix is unremarkable. ABDOMINAL WALL: No significant hernia is appreciated. LYMPH NODES: Normal. VASCULAR: Unremarkable. PELVIC VISCERA: There is an IUD within the uterus which appears to be partially within the myometrium. OSSEOUS STRUCTURES: Unremarkable. CT/CT abdomen pelvis wo IV con IMPRESSION: 1. Mild left hydronephrosis and hydroureter extending into the pelvis to the level of a 6 x 3 mm calculus in the distal left ureter. There is left perinephric stranding/fluid. There is fluid seen tracking along the retroperitoneum/left ureter into the pelvis. Consider calyceal rupture. 2. There is an IUD within the uterus which appears to be partially within the myometrium. Fleischner guidelines were followed. Critical Care Time Critical Care Time Critical Care Time: Yes Total Critical Care Time: 45 Attestation: I have personally provided critical care time. Time includes review of lab data, radiology results, discussion with consultants, and monitoring for potential decompensation. Intervention performed as documented. Discharge Plan Discharge Clinical Impression: Ureterolithiasis Patient Disposition: Home, Self-Care Instructions: Ureteral Stones (ED) Additional Instructions: Please follow-up with your primary care physician tomorrow. If you have any worsening or new symptoms, please return to the emergency room or call 911 Prescriptions: New cefuroxime axetil 250 mg tablet 250 mg PO BID 5 Days Qty: 10 0RF prednisone 20 mg tablet 20 mg PO DAILY Qty: 2 0RF ketorolac 10 mg tablet 10 mg PO Q8H PRN (Reason: pain) Qty: 12 0RF Rx Instructions: maximum total duration of 5 days from all oral, intranasal, or parenteral formulations, do not use this medication with NSAIDs ondansetron HCl 4 mg tablet 4 mg PO Q6H PRN (Reason: nausea and vomiting) Qty: 10 0RF tamsulosin [Flomax] 0.4 mg capsule 0.4 mg PO DAILY Qty: 14 0RF No Action (DME) blood pressure monitor Kit See Rx Instructions .Route Qty: 1 0RF Rx Instructions: As directed levothyroxine 75 mcg tablet 75 mcg PO QAM Qty: 90 1RF (DME) CPAP Machine/Device Device See Rx Instructions .Route Qty: 1 0RF Rx Instructions: autoPAP mode 6-16 cmH2O sertraline 25 mg tablet 50 mg PO QAM metoclopramide HCl 5 mg tablet PO verapamil 120 mg tablet extended release 120 mg PO DAILY sumatriptan succinate 50 mg tablet 50 mg PO Q2-4H Mirena 20 mcg/24 hours (8 yrs) 52 mg intrauterine device intrauterine sertraline [Zoloft] 25 mg tablet 25 mg PO DAILY 90 Days Qty: 90 2RF Print Language: Kazakh
[2024-03-29] MEDS: Ketorolac Tromethamine 60 MG/2 ML VIAL IM (05:04)
[2024-03-29] MEDS: Ondansetron ODT 4 MG TAB.RAPDIS TRANSLINGU (05:23)
[2024-03-29] MEDS: predniSONE 20 MG TABLET PO (05:23)
[2024-03-29] MEDS: levoFLOXacin 500 MG TABLET PO (05:23)
[2024-03-29] MEDS: Tamsulosin HCL 0.4 MG CAPSULE PO (05:23)
[2024-03-29 05:40] VITALS: BP 134/89; PULSE 80; RESP 18; TEMP 36.8; O2SAT 97
[2024-03-29 05:48] VITALS: BP 120/62; PULSE 80; RESP 18; TEMP 36.8; O2SAT 97
== END 2024-03-29 05:48 | disposition home or self-care (01) ==
PROVIDERS: Emergency Provider Emergency Medicine; PCP Internal Medicine
DX: N13.2 Hydronephrosis with renal and ureteral calculous obstruction (principal); R10.9 Unspecified abdominal pain; I10 Essential (primary) hypertension; Z79.899 Other long term (current) drug therapy
CPT/HCPCS: 36415; 74176; 80053; 81001; 83690; 84702; 85027; 87086; 96372; 99284; J1885

== ENCOUNTER 2024-04-13 17:02 | Outpatient (RCR) | payer OTHER, SELFPAY ==
--- NOTE | 2024-02-09 17:21 | MHC.PT.EP ---
[facility] [place] Office [place] Office [place] Office [address] Rolo Magallanes [address] [phone] F: [phone] F: [phone] F: [phone] F: [phone] Physical Therapy Plan of Care Date of Evaluation: 02/09/24 Date of Surgery: Diagnosis: upper back pain, neck pain (RS) Assessment: Patient is a pleasant 43 y.o. female who is referred to PT by Dr. Bethany Day MD, with Dx of dorsalgia and cervicalgia (upper back and neck pain). She presents with poor posture with shoulder girdle muscle imbalances including weakness in mid and lower traps and scapular stabilizers with tightness of cervical musculature (scalenes, UT, pec minor, suboccipitals), with pain. Due to her intermittent UE radicular sxs I feel she could benefit from cervical traction treatment. Patient current functional limitations are prolonged sitting, standing, turning head, weakness with lift/carry, sleeping (tends to sleep on recliner for relief). Patient will benefit from skilled PT to address aforementioned impairments and functional limitations to meet established goals. Frequency and Duration: The patient will be seen 2x/week for 4 weeks Short Term Goals: 2 weeks Patient demonstrates consistency and independence with HEP to self manage symptoms. Patient is able to centralize UE radicular sxs with postural exercises and awareness. Software Implementation Specialist Goals: 4 weeks Patient presents with increased cervical rotation 70 degrees bilaterally to look over shoulders when driving. Patient presents with increased bilateral middle trap strength 4/5 to be able to sleep in bed and not in recliner to improve sleep. Treatment Plan: Modalities to reduce pain, spasms and effusion. Manual therapy to restore motion and function. Therapeutic exercise to improve strength and flexibility. Neuromuscular re-education for posture and balance. Therapeutic activities to return to functional activities of daily living. Electronically signed by: Bebeto Childers, PT, DPT Please sign and return to therapist. Thank you for your referral.
--- NOTE | 2024-05-26 09:40 | MHC.PT.DC ---
[facility] [place] Office [place] Office [place] Office [address] Rolo Magallanes [address] [phone] F: [phone] F: [phone] F: [phone] F: [phone] Physical Therapy Discharge Report Diagnosis: upper back pain, neck pain (RS) Date of Surgery: Date of Evaluation: 02/09/24 Date of Discharge: 05/26/24 Treatments to Date: 11 Cancellations to Date: 2 No Shows to Date: 0 Discharge Status: Improved Function Independent with HEP Patient Elected to Stop Discharge Summary: Elmira ceased attending PT on her own accord after her PT session on 04/13/24. The PT assessment on that date reads, Elmira progressed with scapular stability exercises. Tolerated well only requiring cues for RTC engagement. Progressed to RTB for all ther ex. She continues to have pain relief following traction. Electronically signed by: Bebeto Childers, PT, DPT Please sign and return to therapist. Thank you for your referral.
== END 2024-05-26 09:40 | disposition home or self-care (01) ==
LOC: HO.PT 17:02
PROVIDERS: PCP Internal Medicine; Visit Provider Internal Medicine
DX: M54.2 Cervicalgia (principal); M54.6 Pain in thoracic spine
CPT/HCPCS: 97012; 97110; 97140; 97161; 97530

== ENCOUNTER 2024-04-19 14:35 | Outpatient (AMB) | payer OTHER, SELFPAY ==
--- NOTE | 2024-04-19 14:35 | A.OFFVIS_ITS ---
Intake Visit Reasons: ureteral stone Intake Note: New Patient presents for initial visit for ureteral stone Urology Medications: none Blood Thinner: none Safety Deposit Clerk Required: No Accompanied by: Self / Same As Patient Allergies No Known Allergies [No Known Allergies*] Allergy (Verified 04/19/24 15:00) Medication List - Last Reconciled 04/19/24 by VINITA Chen blood pressure monitor As directed CPAP (CPAP Machine/Device) autoPAP mode 6-16 cmH2O ketorolac 10 mg PO Q8H PRN levonorgestrel (Mirena) intrauterine levothyroxine 75 mcg PO QAM ondansetron HCl 4 mg PO Q6H PRN sertraline 50 mg PO QAM sertraline (Zoloft) 25 mg PO DAILY 90 days sumatriptan succinate 50 mg PO Q2-4H verapamil ER 120 mg PO DAILY HPI Comments Details: Neena is a very pleasant 44-year-old female patient of Dr.Roca Day. She has a past medical history of acrocyanosis, obstructive sleep apnea, bilateral occipital neuralgia, lumbar pain, fibromyalgia, anxiety, migraines, and hypothyroidism. She presents to the office today as a new patient for nephrolithiasis. In discussion with the patient today she reports following up at [facility] in December for left-sided flank pain she had been experiencing at which time she was noted to have nephrolithiasis and recommendations were made for surveillance monitoring. She reports having seeked emergency room care 2 weeks ago here at [facility] for left- sided flank pain she had been experiencing at which time a CT of the abdomen was ordered and performed. These results were reviewed with the patient today. Mild left hydronephrosis and hydroureter extending into the pelvis to the level of a 6 mm calculus in the distal left ureter. She reports having completed Flomax and prednisone as prescribed by ER physician. She reports flank pain and abdominal pain she had been experiencing has since subsided however she does not recall passage of stone and or stone fragments. She discusses her longstanding history of chronic pain and therefore she does continue to experience generalized back pain however reports this is much different than the pain she had previously been experiencing. She otherwise denies any bothersome urinary issues. She denies urinary urgency, urinary frequency, incontinence, nocturia, hematuria, dysuria, foul smelling urine, changes to urinary stream, flank pain, fever, and or chills. She is happy with her current voiding parameters. When asked she denies any previous history of nephrolithiasis prior to December of this year and or surgical intervention for nephrolithiasis. We discussed potential causes of nephrolithiasis as well as obtaining imaging to ensure resolution of hydronephrosis and passage of stone. She otherwise offers no other issues or concerns at this time. [facility] Medical History Acrocyanosis Physical exam Cervical spondylosis without myelopathy CHELSEY (obstructive sleep apnea) Myofascial pain syndrome, cervical Bilateral occipital neuralgia Bilateral sacroiliitis Daytime sleepiness Neck pain Lumbar pain Fibromyalgia Anxiety Migraines Hypothyroidism Surgical History No pertinent past surgical history Family History Father Essential hypertension Kidney failure Mother Essential hypertension Family/Other FH: mental illness Paternal Aunt Ovarian cancer Stomach cancer Throat cancer Breast cancer Social History Housing: House Alcohol intake: current Alcohol intake frequency: does not drink Patient Tobacco Use Status: Never used Tobacco e-Cigarette/Vaping Use: Never Used Second Hand Smoke Exposure: No service: No Current occupational status: employed Current occupational exposures/hazards: No Gender identity: Female Cognitive needs: No Hearing needs: No Vision needs: No Female Reproductive History Menstrual Age of Menarche: 10 Review of Systems Const All systems reviewed & are unremarkable except as noted in HPI and below Physical Exam Const General: cooperative, comfortable, no acute distress, well developed, alert and awake Nutritional Appearance: overweight Orientation/consciousness: patient oriented x3 Limitations: no limitations HEENT Head: Yes normal to inspection, Yes normocephalic and Yes atraumatic Ears: hearing grossly normal bilaterally Eyes General: appearance normal, both eyes and all related structures Neck Neck: Yes normal visual inspection and Yes trachea midline Chest Chest palpation & inspection: normal inspection of the chest Resp Effort & Inspection: normal respiratory effort and able to speak in complete sentences Cardio Rate: regular rate GI Inspection: Yes normal to inspection General: Yes no CVA tenderness Back/Spine/Pelvis Back: no CVA tenderness Skin General skin exam: no rashes or lesions noted Neuro General: patient oriented x3 Extrem General: Yes normal to inspection Psych Appearance: grossly normal and well kempt Mental Status: mental status grossly normal Speech and movement: Normal speech and movement present and Clear speech present Affect: normal affect Attitude: cooperative Thought process: Normal thought process present Thought content: Normal thought content present Insight: Fair insight present (Psych) Judgement: Fair judgement present (Psych) Results AMB Urinalysis, Automated UA Leukoctes 0 Sarah/uL Last Edit by [facility] on 04/19/24 15:00 UA Nitrite Last Edit by [employer] on 04/19/24 15:00 UA Urobilinogen 0.2 mg/dL Last Edit by [facility] on 04/19/24 15:00 UA Protein 0 mg/dL Last Edit by [facility] on 04/19/24 15:00 UA pH 6.0 Last Edit by [facility] on 04/19/24 15:00 UA Blood 200 Teofilo/uL Last Edit by [facility] on 04/19/24 15:00 UA Specific [place] 1.020 Last Edit by [facility] on 04/19/24 15:00 UA Ketone Last Edit by [facility] on 04/19/24 15:00 UA Bilirubin 0 mg/dL Last Edit by [facility] on 04/19/24 15:00 UA Glucose 0 mg/dL Last Edit by [facility] on 04/19/24 15:00 Results Reviewed Results Reviewed: Laboratory Last Values Urine pH (Auto) 6.0 04/19/24 14:43 Specific [place] (Auto) 1.020 04/19/24 14:43 Urine Protein (Auto) 0 mg/dL 04/19/24 14:43 Glucose (UA)(Auto) 0 mg/dL 04/19/24 14:43 Urine Blood (Auto) 200 Teofilo/uL 11/27/24 14:43 Urine Bilirubin (Auto) 0 mg/dL 04/19/24 14:43 Urine Urobilinogen (Auto) 0.2 mg/dL 04/19/24 14:43 Leukocyte Esterase (Auto) 0 Sarah/uL 04/19/24 14:43 Date of Service: 03/29/24 EXAMINATION: CT ABDOMEN AND PELVIS WITHOUT CONTRAST FINDINGS: LUNG BASES: There is minimal atelectatic change at the right lung base. LIVER, GALLBLADDER, AND BILIARY TREE: The liver is normal in size, shape, and attenuation. No focal hepatic lesion or biliary ductal dilatation is present. The gallbladder is unremarkable with no evidence of radiopaque gallstones, gallbladder wall thickening, or obvious pericholecystic inflammatory changes. PANCREAS: Unremarkable. SPLEEN: Unremarkable. ADRENAL GLANDS: Unremarkable. KIDNEYS AND URETERS: The kidneys are normal in size, shape, and attenuation. There is left perinephric stranding/fluid. There is mild left hydronephrosis and hydroureter extending into the pelvis to the level of a 6 x 3 mm calculus distal left ureter. There is fluid seen tracking along the retroperitoneum/left ureter into the pelvis. BLADDER: Unremarkable. GASTROINTESTINAL TRACT: The small and large bowel are unremarkable. The appendix is unremarkable. ABDOMINAL WALL: No significant hernia is appreciated. LYMPH NODES: Normal. VASCULAR: Unremarkable. PELVIC VISCERA: There is an IUD within the uterus which appears to be partially within the myometrium. OSSEOUS STRUCTURES: Unremarkable. IMPRESSION: 1. Mild left hydronephrosis and hydroureter extending into the pelvis to the level of a 6 x 3 mm calculus in the distal left ureter. There is left perinephric stranding/fluid. There is fluid seen tracking along the retroperitoneum/left ureter into the pelvis. Consider calyceal rupture. 2. There is an IUD within the uterus which appears to be partially within the myometrium. Assessment & Plan Assessment & Plan (1) Renal calculi: Code(s): N20.0 - Calculus of kidney Category: Medical (2) Hydronephrosis concurrent with and due to calculi of kidney and ureter: Code(s): N13.2 - Hydronephrosis with renal and ureteral calculous obstruction Category: Medical Plan In office urinalysis results reviewed with the patient today; as noted above. Recent CT results reviewed with the patient today; as noted above. We discussed at length potential causes of nephrolithiasis. Will obtain renal ultrasound to ensure resolution of hydronephrosis/patient believes she potentially passed her kidney stone. Discussed, educated, and stressed the importance of adequate hydration relation to nephrolithiasis as well as overall health and well-being. She currently denies any bothersome urinary issues or concerns. She reports be happy with current voiding parameters. Follow-up in 1-2 weeks with imaging to be completed prior; or sooner with any issues, concerns, and or questions. Orders: Orders US renal BI Today N20.0 - Calculus of kidney AMB Urinalysis Automated Today Z13.9 - Encounter for screening, unspecified Patient Instructions: The patient had an opportunity to ask questions regarding the treatment plan. All questions were answered. Physical exam, labs, and imaging were discussed and reviewed in detail. As well as risks, benefits, and discussion of treatment choices. No major barriers to understanding were identified. The patient expressed understanding and agreement with the above treatment plan. The patient was made aware they should contact our office by phone for worsening of their current condition, the appearance of new symptoms, or with any questions or concerns. Compliance is encouraged with any medications and follow up testing that is ordered. It is a privilege to be allowed the opportunity to participate in? your urological care.? Again, if you have any questions or concerns If you have any questions or concerns please do not hesitate to contact me. The office is [phone]. This note is constructed using voice recognition software. While every effort has been made to ensure accuracy orthotist prosthetist errors may have been included. Yours sincerely, NATE Chen Coding Level of Care Code New Pt Level 3 (72710) Diagnoses Renal calculi N20.0 Hydronephrosis concurrent with and due to calculi of kidney and ureter N13.2
== END 2024-04-19 15:01 | disposition home or self-care (01) ==
PROVIDERS: PCP Internal Medicine; Visit Provider Nurse Practitioner Family
DX: N20.0 Calculus of kidney (principal); N13.2 Hydronephrosis with renal and ureteral calculous obstruction; Z13.9 Encounter for screening, unspecified
CPT/HCPCS: 99203

== ENCOUNTER → 2024-04-19 14:35 | Outpatient (BNVA) | payer OTHER, SELFPAY | PROVIDERS: PCP Internal Medicine; Visit Provider Nurse Practitioner Family | DX: N13.2 Hydronephrosis with renal and ureteral calculous obstruction (principal) | CPT/HCPCS: 81003 ==

== ENCOUNTER 2024-04-24 15:13 | Outpatient (REF) | payer OTHER, SELFPAY ==
--- NOTE | ~2024-04-24 | US_ITS ---
EXAMINATION: US RETROPERITONEAL LIMITED (RENAL ONLY) CLINICAL INFORMATION: Renal stones. COMPARISON: CT abdomen and pelvis 03/29/2024, KUB 03/16/2024. TECHNIQUE: Dedicated ultrasound images of the kidneys. Limited visualization due to bowel gas. FINDINGS: RIGHT KIDNEY: 10.8 x 4.7 x 4.5 cm (SAG x AP x TRV). No hydronephrosis. 4 mm lower pole calculus. Renal cortical thickness is normal. Limited visualization. LEFT KIDNEY: 10.5 x 4.6 x 5.3 cm (SAG x AP x TRV). No hydronephrosis. No renal calculi. Renal cortical thickness is normal. Limited visualization. US/US renal BI IMPRESSION: 4 mm right renal calculus. No hydronephrosis. This study was presented today April 25, 2024 for interpretation. Stat results provided at this time as requested by referring provider. Electronically signed by: Terri Garcia MD 04/25/2024 08:53 AM EST
== END 2024-04-24 15:14 | disposition home or self-care (01) ==
LOC: HO.US 15:13
PROVIDERS: PCP Internal Medicine; Visit Provider Nurse Practitioner Family
DX: N20.0 Calculus of kidney (principal)
CPT/HCPCS: 76775

== ENCOUNTER 2024-05-09 16:07 | Outpatient (AMB) | payer OTHER, SELFPAY ==
--- NOTE | 2024-05-09 16:07 | A.OFFVIS_ITS ---
Intake Visit Reasons: 2-4 week US(set) Intake Note: Patient presents today for tele visit follow up on: ureteral stone and ultrasound results Imaging Completed: 04/24/24 Urology Medications: none Blood Thinner: none Information Technology Intern Required: No Accompanied by: Self / Same As Patient Allergies No Known Allergies [No Known Allergies*] Allergy (Verified 05/09/24 16:18) Medication List - Last Reconciled 05/09/24 by VINITA Chen blood pressure monitor As directed CPAP (CPAP Machine/Device) autoPAP mode 6-16 cmH2O levonorgestrel (Mirena) intrauterine levothyroxine 75 mcg PO QAM ondansetron HCl 4 mg PO Q6H PRN sertraline 50 mg PO QAM sertraline (Zoloft) 25 mg PO DAILY 90 days sumatriptan succinate 50 mg PO Q2-4H verapamil ER 120 mg PO DAILY HPI Comments Details: Neena is a very pleasant 44-year-old female patient of Dr.Roca Day. She has a past medical history of acrocyanosis, obstructive sleep apnea, bilateral occipital neuralgia, lumbar pain, fibromyalgia, anxiety, migraines, and hypothyroidism. She presents to the office today for follow-up. Of note, patient was seen approximately 1 month ago as a new patient for nephrolithiasis at which time a renal ultrasound was ordered for further assessment evaluation. These results reviewed with the patient today. Bilateral kidneys with no hydronephrosis or masses noted. 4 mm right nonobstructing renal calculus noted. It appears mild left hydronephrosis and 6 mm calculus in the left distal ureter that was present on previous CT are no longer present. She reports flank pain and abdominal pain she had been experiencing has since subsided however she does continue with intermittent episodes of low-back pain. She does have a longstanding history of lumbar pain as well as fibromyalgia. She otherwise denies any bothersome urinary issues. She denies urinary urgency, urinary frequency, incontinence, nocturia, hematuria, dysuria, foul smelling urine, changes to urinary stream, flank pain, fever, and or chills. She is happy with her current voiding parameters. When asked she denies any previous history of nephrolithiasis prior to December of this year and or surgical intervention for nephrolithiasis. We discussed potential causes of nephrolithiasis as well as further workup to include Litholink. She otherwise offers no other issues or concerns at this time. [facility] Medical History Acrocyanosis Physical exam Cervical spondylosis without myelopathy CHELSEY (obstructive sleep apnea) Myofascial pain syndrome, cervical Bilateral occipital neuralgia Bilateral sacroiliitis Daytime sleepiness Neck pain Lumbar pain Fibromyalgia Anxiety Migraines Hypothyroidism Surgical History No pertinent past surgical history Family History Father Essential hypertension Kidney failure Mother Essential hypertension Family/Other FH: mental illness Paternal Aunt Ovarian cancer Stomach cancer Throat cancer Breast cancer Social History Housing: House Alcohol intake: current Alcohol intake frequency: does not drink Patient Tobacco Use Status: Never used Tobacco e-Cigarette/Vaping Use: Never Used Second Hand Smoke Exposure: No service: No Current occupational status: employed Current occupational exposures/hazards: No Gender identity: Female Cognitive needs: No Hearing needs: No Vision needs: No Female Reproductive History Menstrual Age of Menarche: 10 Review of Systems Const All systems reviewed & are unremarkable except as noted in HPI and below Physical Exam Const General: cooperative, healthy appearing, comfortable, no acute distress, well developed, alert and awake Orientation/consciousness: patient oriented x3 Resp Effort & Inspection: normal respiratory effort and able to speak in complete sentences Neuro General: patient oriented x3 Psych Appearance: grossly normal and well kempt Mental Status: mental status grossly normal Speech and movement: Clear speech present Affect: normal affect Attitude: cooperative Thought process: Normal thought process present Thought content: Normal thought content present Insight: Fair insight present (Psych) Judgement: Fair judgement present (Psych) Telehealth Telehealth Telehealth Platform: [facility] Location of provider rendering services: practice address Location of patient: address on file Patient Identification confirmed using: Name, : Yes Telehealth method: video Patient verbally consented to treatment: Yes Patient verbally consented to billing insurance company: Yes Patient informed of any privacy concerns related to visit: Yes Minutes spent on Phone/Video with Pt.: 15 Results Reviewed Results Reviewed: Date of Service: 04/24/24 EXAMINATION: US RETROPERITONEAL LIMITED (RENAL ONLY) FINDINGS: RIGHT KIDNEY: 10.8 x 4.7 x 4.5 cm (SAG x AP x TRV). No hydronephrosis. 4 mm lower pole calculus. Renal cortical thickness is normal. Limited visualization. LEFT KIDNEY: 10.5 x 4.6 x 5.3 cm (SAG x AP x TRV). No hydronephrosis. No renal calculi. Renal cortical thickness is normal. Limited visualization. IMPRESSION: 4 mm right renal calculus. No hydronephrosis. Assessment & Plan Assessment & Plan (1) Renal calculi: Code(s): N20.0 - Calculus of kidney Category: Medical Plan Recent renal ultrasound results reviewed with the patient today; as noted above. We discussed further metabolic workup to include Litholink. Discussed, educated, and stressed the importance of adequate hydration relation to nephrolithiasis as well as overall health and well-being. Discussed adding 1 oz of lemon juice to water daily. Start vitamin B6 as discussed and prescribed. She currently denies any bothersome urinary issues. She reports be happy with current voiding parameters. Follow-up in 3 months with Litholink to be completed prior; or sooner with any issues, concerns, and or questions. Medications: New pyridoxine (vitamin B6) 100 mg PO DAILY 90 days 90 tabs 1RF N20.0 - Calculus of kidney Patient Instructions: The patient had an opportunity to ask questions regarding the treatment plan. All questions were answered. Physical exam, labs, and imaging were discussed and reviewed in detail. As well as risks, benefits, and discussion of treatment choices. No major barriers to understanding were identified. The patient expressed understanding and agreement with the above treatment plan. The patient was made aware they should contact our office by phone for worsening of their current condition, the appearance of new symptoms, or with any questions or concerns. Compliance is encouraged with any medications and follow up testing that is ordered. It is a privilege to be allowed the opportunity to participate in? your urological care.? Again, if you have any questions or concerns If you have any questions or concerns please do not hesitate to contact me. The office is [phone]. This note is constructed using voice recognition software. While every effort has been made to ensure accuracy hvac engineer errors may have been included. Yours sincerely, NATE Chen Coding Level of Care Code Tele Est Pt Level 3 (02287) Diagnoses Renal calculi N20.0
== END 2024-05-09 16:32 | disposition home or self-care (01) ==
LOC: HO.HUSH 16:07
PROVIDERS: PCP Internal Medicine; Visit Provider Nurse Practitioner Family
DX: N20.0 Calculus of kidney (principal)
CPT/HCPCS: 99213

== ENCOUNTER 2024-08-07 14:30 | Outpatient (AMB) | payer OTHER, SELFPAY ==
--- NOTE | 2024-08-07 14:40 | MHC.OFFVIS ---
Intake Visit Reasons: three-month follow-up with a Litholink Intake Note: Patient presents today for tele visit follow up on: ureteral stone and litholink results Urology Medications: none Blood Thinner: none Rn Clinical Review Required: No Accompanied by: Self / Same As Patient Allergies No Known Allergies [No Known Allergies*] Allergy (Verified 08/07/24 15:45) Medication List - Last Reconciled 08/07/24 by ALISSA Chen- blood pressure monitor As directed CPAP (CPAP Machine/Device) autoPAP mode 6-16 cmH2O levonorgestrel (Mirena) intrauterine levothyroxine 75 mcg PO QAM naproxen 500 mg PO BID 14 days ondansetron HCl 4 mg PO Q6H PRN pyridoxine (vitamin B6) 100 mg PO DAILY 90 days sertraline (Zoloft) 25 mg PO DAILY 90 days sumatriptan succinate 50 mg PO Q2-4H verapamil ER 120 mg PO DAILY HPI Comments Details: Neena is a very pleasant 44-year-old female patient of Dr.Roca Day. She has a past medical history of acrocyanosis, obstructive sleep apnea, bilateral occipital neuralgia, lumbar pain, fibromyalgia, anxiety, migraines, and hypothyroidism. She presents to the office today for follow-up of her nephrolithiasis. Recent Litholink results reviewed with the patient today. We discussed low urine volume in relation to reoccurrence of nephrolithiasis. We discussed importance of increasing urine volume above 2.5 L. We also discussed high calcium oxalate. We discussed managing urine volume in reassessing Litholink in 3 months. Previous imaging 05/16 notes bilateral kidneys with no hydronephrosis or masses noted. 4 mm right nonobstructing renal calculus noted. It appears mild left hydronephrosis and 6 mm calculus in the left distal ureter that was present on previous CT are no longer present. When asked she does report flank pain however patient with a history of lumbar pain as well as fibromyalgia in discusses pain has always been ongoing. She otherwise denies any bothersome urinary issues. She denies urinary urgency, urinary frequency, incontinence, nocturia, hematuria, dysuria, foul smelling urine, changes to urinary stream, flank pain, fever, and or chills. She is happy with her current voiding parameters. When asked she denies any previous history of nephrolithiasis prior to [place] of last year and or surgical intervention for nephrolithiasis. We discussed potential causes of nephrolithiasis. She otherwise offers no other issues or concerns at this time. [facility] Medical History Acrocyanosis Physical exam Cervical spondylosis without myelopathy CHELSEY (obstructive sleep apnea) Myofascial pain syndrome, cervical Bilateral occipital neuralgia Bilateral sacroiliitis Daytime sleepiness Neck pain Lumbar pain Fibromyalgia Anxiety Migraines Hypothyroidism Surgical History No pertinent past surgical history Family History Father Essential hypertension Kidney failure Mother Essential hypertension Family/Other FH: mental illness Paternal Aunt Ovarian cancer Stomach cancer Throat cancer Breast cancer Social History Housing: House Alcohol intake: current Alcohol intake frequency: does not drink Patient Tobacco Use Status: Never used Tobacco e-Cigarette/Vaping Use: Never Used Second Hand Smoke Exposure: No service: No Current occupational status: employed Current occupational exposures/hazards: No Gender identity: Female Cognitive needs: No Hearing needs: No Vision needs: No Female Reproductive History Menstrual Age of Menarche: 10 Review of Systems Const All systems reviewed & are unremarkable except as noted in HPI and below Physical Exam Const General: cooperative, healthy appearing, comfortable, no acute distress, well developed, alert and awake Nutritional Appearance: overweight Orientation/consciousness: patient oriented x3 Limitations: no limitations HEENT Head: Yes normal to inspection, Yes normocephalic and Yes atraumatic Ears: hearing grossly normal bilaterally Eyes General: appearance normal, both eyes and all related structures Neck Neck: Yes normal visual inspection and Yes trachea midline Chest Chest palpation & inspection: normal inspection of the chest Resp Effort & Inspection: normal respiratory effort and able to speak in complete sentences Cardio Rate: regular rate GI Inspection: Yes normal to inspection General: Yes no CVA tenderness Back/Spine/Pelvis Back: no CVA tenderness Skin General skin exam: no rashes or lesions noted Neuro General: patient oriented x3 Extrem General: Yes normal to inspection Psych Appearance: grossly normal and well kempt Mental Status: mental status grossly normal Speech and movement: Clear speech present Affect: normal affect Attitude: cooperative Thought process: Normal thought process present Thought content: Normal thought content present Insight: Fair insight present (Psych) Judgement: Fair judgement present (Psych) Results AMB Urinalysis, Automated UA Leukoctes 0 Sarah/uL Last Edit by [email or web address] on 08/07/24 14:55 UA Nitrite Last Edit by [email or web address] on 08/07/24 14:55 UA Urobilinogen 0.2 mg/dL Last Edit by Nirvahatwin on 08/07/24 14:55 UA Protein 0 mg/dL Last Edit by [employer] on 08/07/24 14:55 UA pH 8.0 Last Edit by [employer] on 08/07/24 14:55 UA Blood 0 Teofilo/uL Last Edit by [employer] on 08/07/24 14:55 UA Specific [place] 1.010 Last Edit by [employer] on 08/07/24 14:55 UA Ketone Negative Last Edit by [employer] on 08/07/24 14:55 UA Bilirubin 0 mg/dL Last Edit by [employer] on 08/07/24 14:55 UA Glucose 0 mg/dL Last Edit by [employer] on 08/07/24 14:55 Results Reviewed Results Reviewed: Laboratory Last Values Urine pH (Auto) 8.0 08/07/24 14:52 Specific [place] (Auto) 1.010 08/07/24 14:52 Urine Protein (Auto) 0 mg/dL 08/07/24 14:52 Glucose (UA)(Auto) 0 mg/dL 08/07/24 14:52 Urine Ketones (Auto) Negative 08/07/24 14:52 Urine Blood (Auto) 0 Teofilo/uL 08/07/24 14:52 Urine Bilirubin (Auto) 0 mg/dL 08/07/24 14:52 Urine Urobilinogen (Auto) 0.2 mg/dL 08/07/24 14:52 Leukocyte Esterase (Auto) 0 Sarah/uL 08/07/24 14:52 Assessment & Plan Assessment & Plan (1) Renal calculi: Code(s): N20.0 - Calculus of kidney Category: Medical Plan In office urinalysis results reviewed with the patient today; as noted above. Recent Litholink results reviewed with the patient today; as noted above. We discussed at length importance of increase in hydration as recent Litholink noted urine collection volume of 1.2 L; we discussed importance in relation to nephrolithiasis. Continue vitamin B6. Continue adding 1 oz of lemon juice to water daily. Will repeat Litholink and obtain renal ultrasound prior to a three-month follow-up. Follow-up in 3 months with imaging and Litholink to be completed prior; or sooner with any issues, concerns, and or questions. Orders: Orders AMB Urinalysis Automated Today Z13.9 - Encounter for screening, unspecified URORISK 3 Months N20.0 - Calculus of kidney US renal BI 3 Months N20.0 - Calculus of kidney Medications: Refilled pyridoxine (vitamin B6) 100 mg PO DAILY 90 days 90 tabs 1RF N20.0 - Calculus of kidney Patient Instructions: The patient had an opportunity to ask questions regarding the treatment plan. All questions were answered. Physical exam, labs, and imaging were discussed and reviewed in detail. As well as risks, benefits, and discussion of treatment choices. No major barriers to understanding were identified. The patient expressed understanding and agreement with the above treatment plan. The patient was made aware they should contact our office by phone for worsening of their current condition, the appearance of new symptoms, or with any questions or concerns. Compliance is encouraged with any medications and follow up testing that is ordered. It is a privilege to be allowed the opportunity to participate in? your urological care.? Again, if you have any questions or concerns If you have any questions or concerns please do not hesitate to contact me. The office is [phone]. This note is constructed using voice recognition software. While every effort has been made to ensure accuracy data processing auditor errors may have been included. Yours sincerely, NATE Chen Coding Level of Care Code Est Pt Level 3 (65056) Diagnoses Renal calculi N20.0
== END 2024-08-07 15:22 | disposition home or self-care (01) ==
LOC: HO.HUSH 14:30
PROVIDERS: PCP Internal Medicine; Visit Provider Nurse Practitioner Family
DX: N20.0 Calculus of kidney (principal); Z13.9 Encounter for screening, unspecified
CPT/HCPCS: 99213

== ENCOUNTER → 2024-08-07 14:30 | Outpatient (BNVA) | payer OTHER, SELFPAY | PROVIDERS: PCP Internal Medicine; Visit Provider Nurse Practitioner Family | DX: N20.0 Calculus of kidney (principal) | CPT/HCPCS: 81003 ==

== ENCOUNTER 2024-09-28 09:36 | Outpatient (REF) | payer OTHER, SELFPAY | END 2024-09-28 09:37 | disposition home or self-care (01) | LOC: HO.MAMMO 09:36 | PROVIDERS: PCP Internal Medicine; Visit Provider Internal Medicine | DX: Z12.31 Encounter for screening mammogram for malignant neoplasm of breast (principal) | CPT/HCPCS: 77063; 77067 ==

== ENCOUNTER → 2024-09-28 09:45 | Outpatient (BNV) | payer OTHER, SELFPAY | PROVIDERS: PCP Internal Medicine; Visit Provider Internal Medicine | DX: Z12.31 Encounter for screening mammogram for malignant neoplasm of breast (principal) | CPT/HCPCS: 77063; 77067 ==

== ENCOUNTER 2024-10-31 08:08 | Outpatient (REF) | payer OTHER, SELFPAY ==
--- NOTE | ~2024-10-31 | US_ITS ---
EXAMINATION: US KIDNEY BILATERAL HISTORY: N20.0 - Calculus of kidney TECHNIQUE: Real-time grayscale ultrasound imaging of the kidneys was performed and images were reviewed. COMPARISON: There are no prior studies available for comparison. FINDINGS: Right kidney: The right kidney measures 11.6 x 4.0 x 5.1 cm. Renal parenchymal echotexture and thickness are normal. There are no masses. There is a 3 x 3 x 5 mm nonobstructing calculus at the upper pole. There is no hydronephrosis. Left Kidney: The left kidney measures 10.7 x 5.1 x 5.2 cm. Renal parenchymal echotexture and thickness are normal. There are no masses. There is no hydronephrosis or renal calculi. US/US renal BI IMPRESSION: 5 mm nonobstructing right upper pole renal calculus. Otherwise unremarkable renal ultrasound. Electronically signed by: Joaquín Mas MD 10/31/2024 09:10 AM EDT
== END 2024-10-31 08:09 | disposition home or self-care (01) ==
LOC: HO.US 08:08
PROVIDERS: PCP Internal Medicine; Visit Provider Nurse Practitioner Family
DX: N20.0 Calculus of kidney (principal); Z00.00 Encounter for general adult medical examination without abnormal findings; Z23 Encounter for immunization; F32.0 Major depressive disorder, single episode, mild
CPT/HCPCS: 76775; 90471; 90715; 96127

== ENCOUNTER → 2024-10-31 08:24 | Outpatient (BNV) | payer OTHER, SELFPAY | PROVIDERS: PCP Internal Medicine; Visit Provider Radiology Diagnostic Radiology | DX: N20.0 Calculus of kidney (principal) | CPT/HCPCS: 76775 ==

== ENCOUNTER 2024-10-31 08:57 | Outpatient (AMB) | payer OTHER, SELFPAY ==
--- NOTE | 2024-10-31 09:01 | MHC.PC.OV ---
Vital Signs 10/31/24 09:04 Height 5 ft 1 in Weight 204 lb 2 oz BMI 38.6 BP 130/60 Blood Pressure Location Lt brachial Position Sitting Pulse 69 Pulse Source Pulse Oximeter Temp 97.1 F Temp Source Temporal Artery Scan Pulse Oximetry (%) 98 Oxygen Delivery Method Room Air Intake Visit Reasons: PE Intake Note: Patient is here today for a physical. Tobacco Weigher Required: No Metal Ceiling Hanger: Not Required per policy Accompanied by: Self / Same As Patient Allergies No Known Allergies [No Known Allergies*] Allergy (Verified 10/31/24 09:35) Medication List - Last Reconciled 10/31/24 by Bethany Day MD blood pressure monitor As directed CPAP (CPAP Machine/Device) autoPAP mode 6-16 cmH2O levonorgestrel (Mirena) intrauterine levothyroxine 75 mcg PO QAM naproxen 500 mg PO BID 14 days ondansetron HCl 4 mg PO Q6H PRN pyridoxine (vitamin B6) 100 mg PO DAILY 90 days sertraline (Zoloft) 25 mg PO DAILY 90 days sumatriptan succinate 50 mg PO Q2-4H verapamil ER 120 mg PO DAILY Tobacco use date assessed: 10/31/24 Dental Screening Dental Screen Date: 10/31/24 Did you have a dental visit in the last 12 months?: Yes Did you have a dental problem in the last 6 months where you did not have access to dental care?: No Was dental information given to patient?: Patient has dentist HPI HPI Comments History of Present Illness Details The patient is a 44-year-old female presenting with a need for a physical examination and associated health maintenance interventions. She reports a recent negative mammogram and acknowledges being overdue for her tetanus immunization, which was last received in 2007. The patient manages essential hypertension with verapamil and hypothyroidism with levothyroxine. In addition to her primary concerns, her medical history includes migraines, depression with anxiety, managed by sumatriptan and solove 25, nausea controlled by ondanestron, and kidney stones for which she takes vitamin B6 as prophylaxis. Her family history includes hypertension-related health issues, with her father having from kidney failure and high blood pressure, and her mother also experiencing hypertension. The patient refrains from smoking and drinks alcohol a few times a month, mainly wine. - Tetanus immunization was overdue since the last dose in 2007; offered update today. - Last mammogram conducted last month with negative results. - Pap smear conducted in 2020, followed by a biopsy in 2021 with regular follow-up. - Blood work to be performed this week or next, including thyroid check and screening for cholesterol, sugar, kidney, and liver function. [facility] Medical History Acrocyanosis Physical exam Cervical spondylosis without myelopathy CHELSEY (obstructive sleep apnea) Myofascial pain syndrome, cervical Bilateral occipital neuralgia Bilateral sacroiliitis Daytime sleepiness Neck pain Lumbar pain Fibromyalgia Anxiety Migraines Hypothyroidism Surgical History No pertinent past surgical history Family History Father Essential hypertension Kidney failure Mother Essential hypertension Family/Other FH: mental illness Paternal Aunt Ovarian cancer Stomach cancer Throat cancer Breast cancer Social History (Updated 10/31/24 @ 09:43 by Bethany Day MD) Housing: House Alcohol intake: current Alcohol intake frequency: a few times a month Alcohol type: wine Patient Tobacco Use Status: Never used Tobacco e-Cigarette/Vaping Use: Never Used Second Hand Smoke Exposure: No service: No Current occupational status: employed Current occupational exposures/hazards: No Gender identity: Female Cognitive needs: No Hearing needs: No Vision needs: No Female Reproductive History Menstrual Age of Menarche: 10 Questionnaire PHQ-9 Over the last 2 weeks, how often have you been bothered by any of the following problems? 1. Little interest or pleasure in doing things: several days 2. Feeling down, depressed, or hopeless: not at all 3. Trouble falling or staying asleep, or sleeping too much: several days 4. Feeling tired or having little energy: several days 5. Poor appetite or overeating: not at all 6. Feeling bad about yourself - or that you are a failure or have let yourself or your family down: not at all 7. Trouble concentrating on things, such as reading the newspaper or watching television: not at all 8. Moving or speaking so slowly that other people could have noticed. Or the opposite - being so fidgety or restless that you have been moving around a lot more than usual: not at all 9. Thoughts that you would be better off or of hurting yourself in some way: not at all Total score: 3 Depression Screening Interpretation: Positive Depression Screening Follow-up: Existing condition, In treatment, Community Mental Health Worker F/U and Follow-up Visit Requested Depression Screening Done: Yes 15326 - PHQ-9 Billing: Yes Source: Developed by Drs. Joaquín Zuleta, Lilliam Payne, Gabriel Mancuso and colleagues, with an educational monet from [employer] Thrive Questionnaire Date Thrive assessed: 10/31/24 I am a: Patient What is your living situation today?: I have a steady place to live Within the past 12 months, did the food you bought not last and you didn't have the money to get more?: Never true Within the past 12 months, did you worry whether your food would run out before you got money to buy more?: Never true Do you have trouble paying for medicines?: No Do you have trouble getting transportation to medical appointments?: No Do you have trouble paying your heating and electricity bill?: No Do you have trouble taking care of your child, family member or friend?: No Do you have trouble with day-to-day activities such as bathing, preparing meals, shopping, managing finances, etc.?: No Are you currently unemployed and looking for a job?: No Are you interested in more education?: No Please select the resources that you would like help with: None Currently or been in a relationship where the following occur: No concerns reported THRIVE Score: 0 AUDIT C Alcohol Use Questionnaire (AUDIT-C) 1. How often do you have a drink containing alcohol?: Monthly or less 2. How many drinks containing alcohol do you have on a typical day when you are drinking?: 1 or 2 3. How often do you have six or more drinks on one occasion?: Never Total Score: 1 Score Reviewed/Action Taken: No ZOË-7 AMB Questionnaire ZOË-7 Date ZOË - 7 assessed: 10/31/24 Feeling nervous, anxious, or on edge: 1 = Several days Not being able to stop or control worryin = Several days Worrying too much about different things: 1 = Several days Trouble relaxin = Several days Being so restless that it is hard to sit still: 0 = Not at all Becoming easily annoyed or irritable: 1 = Several days Feeling afraid as if something awful might happen: 0 = Not at all Total ZOË-7 score (0-4 normal; 5-9 mild; 10-14 moderate; 15-21 severe): 5 Source: Developed by Drs. Joaquín Zuleta, Lilliam Payne, Gabriel Mancuso and colleagues, with an educational monet from [employer] ZOË-7 Assessment Billing ZOË-7 Assessment Tool: ZOË-7 Assessment 62522 Review of Systems Const All systems reviewed & are unremarkable except as noted in HPI and below Card Denies chest pain at rest, Denies chest pain with activity, Denies edema, Denies irregular heart rhythm, Denies claudication, Denies dyspnea, Denies dyspnea on exertion, Denies orthopnea, Denies paroxysmal nocturnal dyspnea and Denies slow heart rate Resp Denies cough, Denies dyspnea and Denies dyspnea on exertion GI Denies abdominal pain, Denies change in bowel habits, Denies excessive flatus, Denies nausea and Denies vomiting Denies urinary incontinence, Denies urinary hesitancy and Denies urinary urgency Musc Denies abnormal gait, Denies atrophy, Denies deformity and Denies limited range of motion Skin/Breast Denies bleeding lesions, Denies changing lesions and Denies rash Neuro Denies abnormal gait, Denies behavioral changes and Denies lack of coordination Psych Denies behavioral changes Physical exam (Primary Care) Vital Signs: Last Vital Signs Temp 97.1 F 10/31/24 09:04 Pulse 69 10/31/24 09:04 BP 130/60 10/31/24 09:04 Pulse Ox 98 10/31/24 09:04 Oxygen Delivery Method Room Air 10/31/24 09:04 BMI result Body Mass Index 38.6 BMI Assessment/Plan discussion: High BMI High, discussed plan: lifestyle, weight reduction, dietary, physical activity and alcohol moderation Tobacco/Smoking Status: Tobacco use Status Tobacco use date assessed 10/31/24 10/31/24 09:09 Patient Tobacco Use Status Never used Tobacco 10/31/24 09:43 e-Cigarette/Vaping Use Never Used 10/31/24 09:43 PHQ-9: PHQ-9 Score PHQ-9: Total score 3 10/31/24 09:54 Depression Screening Interpretation: Positive Depression Screening Follow-up: Existing condition, In treatment, Community Mental Health Worker F/U and Follow-up Visit Requested Thrive Assessment: Date of Thrive Assessment Date Thrive assessed 10/31/24 10/31/24 09:09 Currently or been in a relationship where the following occur: No concerns reported HENMT Head: Yes normal to inspection, Yes normocephalic and Yes atraumatic Ears: external ears normal Eyes General: appearance normal, both eyes and all related structures Eyelids: Yes eyelids normal Conjunctivae: conjunctivae normal Neck Neck: Yes normal visual inspection and Yes supple Resp Effort & Inspection: normal respiratory effort Auscultation: clear to auscultation bilaterally Cardio Jugular venous distension: no JVD Rate: regular rate Rhythm: regular rhythm Heart sounds: S1 normal heart sound present and S2 normal heart sound present GI Inspection: Yes normal to inspection Palpation (GI): Soft to palpation and nontender Auscultation: normal bowel sounds Skin General skin exam: no rashes or lesions noted Neuro General: no focal motor deficits Extrem General: Yes full ROM Psych Appearance: grossly normal Immunizations Boostrix Tdap 2.5 Lf unit-8 mcg-5 Lf/0.5 mL intramuscular syringe Performing Provider: Bethany Day MD [facility] [place] [facility] Administered by: Sandie Belle LPN on 10/31/24 09:54 Dose Route Admin Location Dispensed Lot Number Expiration Date NDC Ironer Or Presser 0.5 mL IM Left Deltoid 0.5 mL [id number] 01/20/27 81900-659-04 [employer] VIS Given Date VIS Provided VIS Publication Date 10/31/24 Single Vaccine 20 Eligibility Eligibility Date Funding Source Not [facility] Eligible 10/31/24 Private Coding Level of Care Code Est Pt Prev Care 40-64y(27395) Diagnoses Physical exam Z00.00 Mild major depression F32.0 Additional Codes ZOË-7 Assessment Billing - ZOË-7 Assessment Tool: ZOË-7 Assessment 89028 ([id number]) PHQ-9 - 49785 - PHQ-9 Billing: Yes ([id number]) Time Spent (min) 31 Assessment & Plan Assessment & Plan (1) Physical exam: Code(s): Z00.00 - Encounter for general adult medical examination without abnormal findings Category: Medical (2) Mild major depression: Code(s): F32.0 - Major depressive disorder, single episode, mild Category: Medical Plan Today's visit focused on health maintenance, including updating the tetanus vaccination and coordinating follow-up diagnostic blood work to reassess thyroid function, lipid profile, and renal and hepatic status. The patient's chronic conditions of hypertension and hypothyroidism continued under current management with medications. Her migraine control using sumatriptan and nausea management with ondanestron remain unchanged. Surveillance for any cardiovascular implications persists, supported by her recent blood pressure stability. The discussed routine blood work will guide any necessary future adjustments. Patient was informed and verbally consented to the use of an ambient scribe for clinic note documentation during this visit. I discussed the importance of staying current with vaccinations and addressed the need for today's tetanus booster. We reviewed her medication regimen for hypertension and hypothyroidism, agreeing on no changes needed given her stable condition. I instructed scheduling blood work to monitor and evaluate her overall health status, thyroid, and other metabolic parameters, emphasizing the need for ongoing attention due to her familial history of hypertension-related complications. We agreed upon the continuation of her migraine and nausea medications as symptoms dictate. I reiterated the importance of maintaining a moderate alcohol intake and continuing her CPAP use for sleep apnea management. Follow-up is contingent on new blood test results or emergence of any concerns. Orders: Orders Thyroid Stimulating Hormone Today E03.9 - Hypothyroidism, unspecified TDaP Immunization Today Z23 - Encounter for immunization Lipid Panel Today E78.5 - Hyperlipidemia, unspecified Comprehensive [place]. Panel Fast Today Z00.00 - Encounter for general adult medical examination without abnormal findings Patient Instructions: - Get the tetanus vaccine today. - Schedule blood work for thyroid, cholesterol, sugar, kidney, and liver function this week or next. - Take prescribed medications as directed. - Continue using CPAP for sleep apnea management. - Limit alcohol intake to a couple of times a month. - Return if there are any symptoms or concerns before the next scheduled visit.
[2024-10-31 09:04] VITALS: BP 130/60; PULSE 69; TEMP 36.2; O2SAT 98; BMI 38.6
== END 2024-10-31 09:55 | disposition home or self-care (01) ==
LOC: HO.HMCH 08:57
PROVIDERS: PCP Internal Medicine; Visit Provider Internal Medicine
DX: Z00.00 Encounter for general adult medical examination without abnormal findings (principal); F32.0 Major depressive disorder, single episode, mild; Z23 Encounter for immunization

== ENCOUNTER 2024-11-15 12:26 | Outpatient (REF) | payer OTHER, SELFPAY ==
[2024-11-17 23:23] LABS: TS Negative Control Passed; TS Panel A 0; TS Panel B 0; TS Positive Control Passed; TSpotTB Negative (Negative)
== END 2024-11-15 12:27 | disposition home or self-care (01) ==
LOC: HO.LAB 12:26
PROVIDERS: Absent Provider Internal Medicine; PCP Internal Medicine
DX: Z11.1 Encounter for screening for respiratory tuberculosis (principal)
CPT/HCPCS: 36415; 86481

== ENCOUNTER 2024-11-27 07:34 | Outpatient (AMB) | payer OTHER, SELFPAY ==
--- NOTE | 2024-11-27 07:34 | A.OFFVIS_ITS ---
Intake Visit Reasons: 3M follow up/ US/ Litho(set) Intake Note: Patient presents today for tele visit follow up on: ureteral stone, litholink and ultrasound results Imaging Completed: 10/31/24 Urology Medications: Vitamin B6 Blood Thinner: none Shipwright Apprentice Required: No Accompanied by: Self / Same As Patient Allergies No Known Allergies (No Known Allergies*) Allergy (Verified 11/27/24 23:46) Medication List - Last Reconciled 11/27/24 by VINITA Chen blood pressure monitor As directed CPAP (CPAP Machine/Device) autoPAP mode 6-16 cmH2O levonorgestrel (Mirena) intrauterine levothyroxine 75 mcg PO QAM naproxen 500 mg PO BID 14 days ondansetron HCl 4 mg PO Q6H PRN pyridoxine (vitamin B6) 100 mg PO DAILY 90 days sertraline (Zoloft) 25 mg PO DAILY 90 days sumatriptan succinate 50 mg PO Q2-4H verapamil ER 120 mg PO DAILY HPI Comments Details: Neena is a very pleasant 44-year-old female patient of Dr.Roca Day. She has a past medical history of acrocyanosis, obstructive sleep apnea, bilateral occipital neuralgia, lumbar pain, fibromyalgia, anxiety, migraines, and hypothyroidism. She is being followed up on today via telehealth for her history of nephrolithiasis. Most recent renal imaging results and Litholink results were reviewed with the patient today. Renal ultrasound 11/15 bilateral kidneys are normal in echotexture and thickness. There are no renal masses or hydronephrosis noted bilaterally. 5 mm nonobstructing right upper pole calculus otherwise unremarkable renal ultrasound. Recent Litholink 11/15 noted slight increase in volume when compared to previous Litholink of 0.5 L. However increased sodium, saturated calcium, oxalate, and uric acid. This was discussed at length. She otherwise denies any bothersome urinary issues. She denies urinary urgency, urinary frequency, incontinence, nocturia, hematuria, dysuria, foul smelling urine, changes to urinary stream, flank pain, fever, and or chills. She is happy with her current voiding parameters. She denies any previous surgical intervention for nephrolithiasis. All questions were answered. She otherwise offers no other issues or concerns at this time. [facility] Medical History Acrocyanosis Physical exam Cervical spondylosis without myelopathy CHELSEY (obstructive sleep apnea) Myofascial pain syndrome, cervical Bilateral occipital neuralgia Bilateral sacroiliitis Daytime sleepiness Neck pain Lumbar pain Fibromyalgia Anxiety Migraines Hypothyroidism Surgical History No pertinent past surgical history Family History Father Essential hypertension Kidney failure Mother Essential hypertension Family/Other FH: mental illness Paternal Aunt Ovarian cancer Stomach cancer Throat cancer Breast cancer Social History Housing: House Alcohol intake: current Alcohol intake frequency: a few times a month Alcohol type: wine Patient Tobacco Use Status: Never used Tobacco e-Cigarette/Vaping Use: Never Used Second Hand Smoke Exposure: No service: No Current occupational status: employed Current occupational exposures/hazards: No Gender identity: Female Cognitive needs: No Hearing needs: No Vision needs: No Female Reproductive History Menstrual Age of Menarche: 10 Review of Systems Const All systems reviewed & are unremarkable except as noted in HPI and below Physical Exam Const General: cooperative Orientation/consciousness: patient oriented x3 Resp Effort & Inspection: able to speak in complete sentences Neuro General: patient oriented x3 Psych Speech and movement: Clear speech present Attitude: cooperative Thought process: Normal thought process present Insight: Fair insight present (Psych) Judgement: Fair judgement present (Psych) Telehealth Telehealth Telehealth Platform: [employer] Location of provider rendering services: practice address Location of patient: address on file Patient Identification confirmed using: Name, : Yes Telehealth method: video Patient verbally consented to treatment: Yes Patient verbally consented to billing insurance company: Yes Patient informed of any privacy concerns related to visit: Yes Minutes spent on Phone/Video with Pt.: 15 Results Reviewed Results Reviewed: Date of Service: 10/31/24 Procedure(s): US renal BI FINDINGS: Right kidney: The right kidney measures 11.6 x 4.0 x 5.1 cm. Renal parenchymal echotexture and thickness are normal. There are no masses. There is a 3 x 3 x 5 mm nonobstructing calculus at the upper pole. There is no hydronephrosis. Left Kidney: The left kidney measures 10.7 x 5.1 x 5.2 cm. Renal parenchymal echotexture and thickness are normal. There are no masses. There is no hydronephrosis or renal calculi. IMPRESSION: 5 mm nonobstructing right upper pole renal calculus. Otherwise unremarkable renal ultrasound. Assessment & Plan Assessment & Plan (1) Renal calculi: Code(s): N20.0 - Calculus of kidney Category: Medical (2) Hydronephrosis concurrent with and due to calculi of kidney and ureter: Code(s): N13.2 - Hydronephrosis with renal and ureteral calculous obstruction Category: Medical Plan Recent renal imaging results reviewed with the patient today; as noted above. Recent Litholink results reviewed with the patient today; as noted above. We discussed importance of adequate hydration as well as dietary management for nephrolithiasis We discussed correlation cause increased sodium and calcium All questions were answered. She currently denies any bothersome urinary issues or concerns. She reports be happy with current voiding parameters. Continue adding 1 oz of lemon juice to water daily. Continue vitamin B6 as discussed and prescribed. Will continue with surveillance monitoring at this time. Will obtain repeat Litholink with recommendations that were made during today's telehealth appointment as well as labs for further assessment evaluation. Follow-up in 3 months with Litholink and labs to be completed prior; or sooner with any issues, concerns, and or questions. Orders: Orders Uric Acid 11/27/24 N13.2 - Hydronephrosis with renal and ureteral calculous obstruction Basic Metabolic Panel 11/27/24 N13.2 - Hydronephrosis with renal and ureteral calculous obstruction Magnesium 11/27/24 N13.2 - Hydronephrosis with renal and ureteral calculous obstruction Phosphorus 11/27/24 N13.2 - Hydronephrosis with renal and ureteral calculous obstruction URORISK 3 Months N13.2 - Hydronephrosis with renal and ureteral calculous obstruction Vitamin D 25-OH Total 11/27/24 N13.2 - Hydronephrosis with renal and ureteral calculous obstruction Calcium 11/27/24 N13.2 - Hydronephrosis with renal and ureteral calculous obstruction Parathyroid Hormone Intact 11/27/24 N13.2 - Hydronephrosis with renal and ureteral calculous obstruction Patient Instructions: The patient had an opportunity to ask questions regarding the treatment plan. All questions were answered. Physical exam, labs, and imaging were discussed and reviewed in detail. As well as risks, benefits, and discussion of treatment choices. No major barriers to understanding were identified. The patient expressed understanding and agreement with the above treatment plan. The patient was made aware they should contact our office by phone for worsening of their current condition, the appearance of new symptoms, or with any questions or concerns. Compliance is encouraged with any medications and follow up testing that is ordered. It is a privilege to be allowed the opportunity to participate in? your urological care.? Again, if you have any questions or concerns If you have any questions or concerns please do not hesitate to contact me. The office is [phone]. This note is constructed using voice recognition software. While every effort has been made to ensure accuracy bottoming machine operator errors may have been included. Yours sincerely, NATE Chen Coding Level of Care Code Tele Est Pt Level 3 (73903) Diagnoses Renal calculi N20.0 Hydronephrosis concurrent with and due to calculi of kidney and ureter N13.2
== END 2024-11-27 08:14 | disposition home or self-care (01) ==
LOC: HO.HUSH 07:34
PROVIDERS: PCP Internal Medicine; Visit Provider Nurse Practitioner Family
DX: N20.0 Calculus of kidney (principal); N13.2 Hydronephrosis with renal and ureteral calculous obstruction
CPT/HCPCS: 99213

== ENCOUNTER 2025-05-03 09:49 | Outpatient (AMB) | payer OTHER, SELFPAY ==
[2025-05-03 09:51] VITALS: BP 128/68; PULSE 92; O2SAT 98; BMI 39.3
--- NOTE | 2025-05-03 09:51 | A.OFFPC_ITS ---
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: No Accompanied by: Self / Same As Patient Allergies No Known Allergies (No Known Allergies*) Allergy (Verified 05/03/25 10:16) Medication List - Last Reconciled 05/03/25 by Bethany Day MD blood pressure monitor As directed CPAP (CPAP Machine/Device) autoPAP mode 6-16 cmH2O levonorgestrel (Mirena) intrauterine levothyroxine 75 mcg PO QAM naproxen 500 mg PO BID 14 days ondansetron HCl 4 mg PO Q6H PRN pyridoxine (vitamin B6) 100 mg PO DAILY 90 days sertraline (Zoloft) 25 mg PO DAILY 90 days sumatriptan succinate 50 mg PO Q2-4H verapamil ER 120 mg PO DAILY Tobacco use date assessed: 10/31/24 Dental Screening Dental Screen Date: 10/31/24 HPI HPI Comments History of Present Illness Details The patient is a 45 year old female presenting for follow-up on recent blood work, medication management, and new concerns of increased joint pain and occasional shortness of breath. She has a history of hypothyroidism and is currently taking levothyroxine 75 mcg. Her medical history is also significant for depression with anxiety, for which she takes sertraline 25 mg, and migraines, treated with sumatriptan as needed. Other chronic medications include verapamil 120 mg, levocetirizine for allergies, ondansetron for nausea, and vitamin B6 for kidney stone prevention. She uses a CPAP machine and has a Mirena IUD. She has no known drug allergies. She reports new-onset, increased joint pain affecting multiple joints and occasional dyspnea. She had a rheumatology consultation a long time ago for her hands but has not been seen recently for her diffuse joint pain. Regarding her weight, she has been participating in workout groups at work but has not seen results. She reports not eating a lot, typically skipping breakfast and having a small cup of coffee with creamer. [facility] Medical History (Updated 05/03/25 @ 10:27 by Bethany Day MD) Acrocyanosis Physical exam Cervical spondylosis without myelopathy CHELSEY (obstructive sleep apnea) Myofascial pain syndrome, cervical Bilateral occipital neuralgia Bilateral sacroiliitis Daytime sleepiness Neck pain Lumbar pain Fibromyalgia Anxiety Migraines Hypothyroidism Surgical History No pertinent past surgical history Family History Father Essential hypertension Kidney failure Mother Essential hypertension Family/Other FH: mental illness Paternal Aunt Ovarian cancer Stomach cancer Throat cancer Breast cancer Social History Housing: House Alcohol intake: current Alcohol intake frequency: a few times a month Alcohol type: wine Patient Tobacco Use Status: Never used Tobacco Tobacco use type: Cigarette e-Cigarette/Vaping Use: Never Used Second Hand Smoke Exposure: No service: No Current occupational status: employed Current occupational exposures/hazards: No Gender identity: Female Cognitive needs: No Hearing needs: No Vision needs: No Female Reproductive History Menstrual Age of Menarche: 10 Questionnaire Thrive Questionnaire Date Thrive assessed: 10/31/24 I am a: Patient What is your living situation today?: I have a steady place to live Within the past 12 months, did the food you bought not last and you didn't have the money to get more?: Never true Within the past 12 months, did you worry whether your food would run out before you got money to buy more?: Never true Do you have trouble paying for medicines?: No Do you have trouble getting transportation to medical appointments?: No Do you have trouble paying your heating and electricity bill?: No Do you have trouble taking care of your child, family member or friend?: No Do you have trouble with day-to-day activities such as bathing, preparing meals, shopping, managing finances, etc.?: No Are you currently unemployed and looking for a job?: No Are you interested in more education?: No Please select the resources that you would like help with: None Currently or been in a relationship where the following occur: No concerns reported THRIVE Score: 0 ZOË-7 AMB Questionnaire ZOË-7 Date ZOË - 7 assessed: 10/31/24 Source: Developed by Lilliam Shaikh [employer], Gabriel Mancuso and colleagues, with an educational monet from [employer]. Review of Systems Const All systems reviewed & are unremarkable except as noted in HPI and below Card Denies chest pain at rest, Denies chest pain with activity, Denies edema, Denies irregular heart rhythm, Denies claudication, Denies dyspnea, Denies dyspnea on exertion, Denies orthopnea, Denies paroxysmal nocturnal dyspnea and Denies slow heart rate Resp Denies cough, Denies dyspnea and Denies dyspnea on exertion Denies urinary incontinence, Denies urinary hesitancy and Denies urinary urgency Musc Denies atrophy, Denies deformity and Denies limited range of motion Physical exam (Primary Care) Vital Signs: Last Vital Signs Pulse 92 05/03/25 09:51 BP 128/68 05/03/25 09:51 Pulse Ox 98 05/03/25 09:51 Oxygen Delivery Method Room Air 05/03/25 09:51 BMI result Body Mass Index 39.3 BMI Assessment/Plan discussion: High BMI High, discussed plan: lifestyle, weight reduction, dietary and physical activity Tobacco/Smoking Status: Tobacco use Status Tobacco use date assessed 10/31/24 05/03/25 09:56 Patient Tobacco Use Status Never used Tobacco 05/03/25 09:56 Tobacco use type Cigarette 05/03/25 09:56 e-Cigarette/Vaping Use Never Used 05/03/25 09:56 Thrive Assessment: Date of Thrive Assessment Date Thrive assessed 10/31/24 05/03/25 09:56 Currently or been in a relationship where the following occur: No concerns reported Resp Effort & Inspection: normal respiratory effort Auscultation: clear to auscultation bilaterally Cardio Jugular venous distension: no JVD Rate: regular rate Rhythm: regular rhythm Heart sounds: S1 normal heart sound present and S2 normal heart sound present Extrem General: Yes full ROM Coding Level of Care Code Add On Preventative Visit Only Diagnoses Mild major depression F32.0 Anxiety F41.9 Hypothyroidism, unspecified type E03.9 Hypothyroidism type: unspecified Essential hypertension I10 Polyarthralgia M25.50 Migraine without status migrainosus, not intractable, unspecified migraine type G43.909 Migraine type: unspecified Status migrainosus presence: without status migrainosus Intractability: not intractable Time Spent (min) 24 Assessment & Plan Assessment & Plan (1) Mild major depression: Code(s): F32.0 - Major depressive disorder, single episode, mild Category: Medical (2) Anxiety: Code(s): F41.9 - Anxiety disorder, unspecified Category: Medical (3) Hypothyroidism: Code(s): E03.9 - Hypothyroidism, unspecified Category: Medical Qualifiers: Hypothyroidism type: unspecified Qualified Code(s): E03.9 - Hypothyroidism, unspecified (4) Essential hypertension: Code(s): I10 - Essential (primary) hypertension Category: Medical (5) Polyarthralgia: Code(s): M25.50 - Pain in unspecified joint Category: Medical (6) Migraines: Code(s): G43.909 - Migraine, unspecified, not intractable, without status migrainosus Category: Medical Qualifiers: Migraine type: unspecified Status migrainosus presence: without status migrainosus Intractability: not intractable Qualified Code(s): G43.909 - Migraine, unspecified, not intractable, without status migrainosus Plan Plan 1. Hypothyroidism A thyroid panel will be checked today to assess if the current dose of levothyroxine 75 mcg needs adjustment. The test is non-fasting and will be performed after the visit. 2. Arthralgia Due to the complaint of diffuse joint pain, a referral will be sent to rheumatology for further evaluation. 3. Obese The patient was counseled on weight management strategies, focusing on portion control by counting forkfuls of protein and vegetables at meals. She was advised to eliminate snacks and sugary drinks, including creamer in her coffee, and to drink only water or unsweetened tea. 4. Hypertension Keep BP less than 130/80 5. Depression with anxiety Continue SSRIs. 6. Migraines Continue triptans as needed. Orders: Orders Thyroid Stimulating Hormone Today E03.9 - Hypothyroidism, unspecified Referrals Rheumatology Referral M25.50 - Pain in unspecified joint
== END 2025-05-03 10:31 | disposition home or self-care (01) ==
PROVIDERS: PCP Internal Medicine; Visit Provider Internal Medicine
DX: F32.0 Major depressive disorder, single episode, mild (principal); F41.9 Anxiety disorder, unspecified; E03.9 Hypothyroidism, unspecified; I10 Essential (primary) hypertension; M25.50 Pain in unspecified joint; G43.909 Migraine, unspecified, not intractable, without status migrainosus

== ENCOUNTER 2025-05-03 09:49 | Outpatient (REF) | payer OTHER, SELFPAY ==
[2025-05-03 12:16] LABS: Thyroid Stimulating Hormone 2.68 uIU/mL (0.32-4.0)
== END 2025-05-03 09:50 | disposition home or self-care (01) ==
LOC: HO.LAB 09:49
PROVIDERS: PCP Internal Medicine; Visit Provider Internal Medicine
DX: E03.9 Hypothyroidism, unspecified (principal); F32.0 Major depressive disorder, single episode, mild; F41.9 Anxiety disorder, unspecified; I10 Essential (primary) hypertension; M25.50 Pain in unspecified joint; G43.909 Migraine, unspecified, not intractable, without status migrainosus
CPT/HCPCS: 36415; 84443